=== PATIENT | female | born 1935 | race Caucasian/White ===

== ENCOUNTER → 2016-08-13 | Outpatient (CLI) | payer OTHER, BC ==
[~2016-08-13] MED LIST: AMB10 PO; ATV/1 PO; CLR10 PO; IBUP-1050 PO; PANT40TA PO; PSEU30TA20 PO; RANI300T2 PO; SIMV40TA4 PO; TELM40TA PO
[2016-08-13 11:40] LABS: BLOOD UREA NITROGEN 18 mg/dl (7-18); BUN/CREATININE RATIO 20.2 (10-20); CALCIUM 8.8 mg/dl (8.5-10.1); CARBON DIOXIDE 30 mmol/L (21-32); CHLORIDE 106 mmol/L (98-107); CREATININE 0.91 mg/dl (0.60-1.20); GLUCOSE 96 mg/dl (70-99); MAGNESIUM 2.3 mg/dl (1.8-2.4); SODIUM 141 mmol/L (136-145)
== END | disposition home or self-care (01) ==
LOC: C.LABBC 08:22
PROVIDERS: ATTEND Internal Medicine
DX: I10 Essential (primary) hypertension (principal); G60.3 Idiopathic progressive neuropathy

== ENCOUNTER → 2016-11-12 | Outpatient (CLI) | payer OTHER, BC ==
[~2016-11-12] VITALS: Ht 162.6 cm; Wt 104.8 kg
[2016-11-12 13:21] VITALS: BP 123/84; Ht 162.6 cm; Wt 104.8 kg
== END | disposition home or self-care (01) ==
LOC: C.NEUR 12:27
PROVIDERS: ATTEND Physician Assistant Medical
DX: G47.33 Obstructive sleep apnea (adult) (pediatric) (principal); G47.34 Idiopathic sleep related nonobstructive alveolar hypoventilation

== ENCOUNTER → 2016-12-10 | Outpatient (CLI) | payer OTHER, BC ==
[2016-12-10 11:34] LABS: CALCIUM 8.9 mg/dl (8.5-10.1)
[2016-12-10 11:36] LABS: BLOOD UREA NITROGEN 21 mg/dl (7-18); BUN/CREATININE RATIO 20.8 (10-20); CARBON DIOXIDE 26 mmol/L (21-32); CHLORIDE 107 mmol/L (98-107); GLUCOSE 101 mg/dl (70-99); POTASSIUM 4.1 mmol/L (3.5-5.1); SODIUM 141 mmol/L (136-145)
[2016-12-10 12:08] LABS: ESTIMATED AVERAGE GLUCOSE 117 mg/dl; HA1C FLAG Normal (Normal)
== END | disposition home or self-care (01) ==
LOC: C.LABBC 08:15
PROVIDERS: ATTEND Internal Medicine
DX: E11.9 Type 2 diabetes mellitus without complications (principal); E78.00 Pure hypercholesterolemia, unspecified

== ENCOUNTER → 2017-01-17 | Outpatient (CLI) | payer OTHER, BC ==
--- NOTE | 2017-01-20 07:43 | MAMMOGRAPHY REPORT ---
BILATERAL DIGITAL SCREENING MAMMOGRAM WITH CAD: 01/17/2017 CLINICAL HISTORY: Routine screening. Patient has no complaints. TECHNIQUE: Current study was also evaluated with a Computer Aided Detection (CAD) system. Bilateral CC and MLO views were obtained. COMPARISON: Comparison is made to exams dated: 01/17/2016 mammogram, 01/11/2015 mammogram, 11/08/2013 m ammogram, 06/02/2012 mammogram, 04/17/2010 mammogram - [facility], and 10/28/2007. BREAST COMPOSITION: There are scattered areas of fibroglandular density in both breasts. FINDINGS: There is a small focal asymmetry measuring 6 mm in the right upper outer quadrant, for whic h spot compression tomosynthesis views and possible breast ultrasound are recommended for further deb luation. The remainder of both breasts are stable compared to prior exams, without suspicious masses, calcific ations, or areas of architectural distortion noted. Small nodular asymmetry in the left medial poste rior breast on the cc view is stable dating back to at least the 2007 exam. IMPRESSION: ACR BI-RADS CATEGORY 0: INCOMPLETE EVALUATION: NEED ADDITIONAL IMAGING EVALUATION Right upper outer quadrant focal asymmetry, for which additional imaging evaluation is recommended. The patient will be called to schedule an appointment. Approximately 10% of breast cancers are not detected with mammography. A negative mammographic report should not delay biopsy if a clinically suggestive mass is present. Mahogany Rodriguez M.D. /:01/18/2017 11:01:55 Courtroom Deputy: Mila Cordon, [facility] letter sent: Addl Imaging 0 BI-RADS Code: ACR BI-RADS Category 0: Incomplete Evaluation: Need Additional Imaging Evaluation
== END | disposition home or self-care (01) ==
LOC: C.MAMM 10:20
PROVIDERS: ATTEND Obstetrics & Gynecology
DX: Z12.31 Encounter for screening mammogram for malignant neoplasm of breast (principal); N64.89 Other specified disorders of breast

== ENCOUNTER → 2017-01-20 | Outpatient (CLI) | payer OTHER, BC ==
--- NOTE | 2017-01-20 14:05 | MAMMOGRAPHY REPORT ---
UNILATERAL RIGHT DIGITAL DIAGNOSTIC MAMMOGRAM TOMOSYNTHESIS AND TARGETED RIGHT ULTRASOUND: 01/20/2017 CLINICAL HISTORY: 81 year-old woman called back from screening mammography for a small 6mm focal asym metry in the right upper outer quadrant. TECHNIQUE: Spot compression right CC and MLO 2-D and tomosynthesis images were obtained. COMPARISON: Comparison is made to exams dated: 01/17/2017 mammogram, 01/17/2016 mammogram, 01/11/2015 m ammogram, 11/08/2013 mammogram, 06/02/2012 mammogram, and 11/10/2013 ultrasound - [facility]. BREAST COMPOSITION: There are scattered areas of fibroglandular density in the right breast. FINDINGS: The spot compression views performed in the right upper outer quadrant demonstrate a persis tent oval circumscribed 4.3 x 5.6 x 3.1 mm mass. No associated architectural distortion or microcalc ification. Further evaluation with ultrasound was performed. Targeted ultrasound was performed in the right upper outer quadrant. In the 10:00 axis, 12 cm from t he nipple, there is an oval parallel circumscribed nearly anechoic cystic appearing mass with posteri or acoustic enhancement. It measures 4.5 x 2.7 x 4.0 mm and correlates well in size, shape and locat ion as the mammographic mass. To assess mammographicsonographic correlation, a skin BB was placed o verlying this cyst and repeat full field right CC and MLO 2-D and tomosynthesis images were performed . These additional views demonstrate alignment of the skin BB with the mammographic mass, confirming mammographicsonographic correlation. IMPRESSION: ACR BI-RADS CATEGORY 2: BENIGN, TARGETED ULTRASOUND ACR BI-RADS CATEGORY 2: BENIGN There is persistent circumscribed 4 x 5 mm oval mass in the right upper outer quadrant, which correla sin with a benign cyst on ultrasound. There is no mammographic or targeted sonographic evidence of m alignancy. Return to annual mammogram screening schedule is recommended. The patient has been verbal ly notified of the results. Approximately 10% of breast cancers are not detected with mammography. A negative mammographic report should not delay biopsy if a clinically suggestive mass is present. Rebecca Kimball M.D. ay/:01/20/2017 11:48:48 Quality Reviewer: Mila Cordon, [facility] letter sent: Normal 06/24 BI-RADS Code: ACR BI-RADS Category 2: Benign Ultrasound BI-RADS: ACR BI-RADS Category 2: Benign
== END | disposition home or self-care (01) ==
LOC: C.MAMM 11:05
PROVIDERS: ATTEND Obstetrics & Gynecology
DX: N64.89 Other specified disorders of breast (principal)

== ENCOUNTER → 2017-01-22 | Outpatient (CLI) | payer OTHER, BC ==
--- NOTE | 2017-01-22 15:07 | DIAGNOSTIC IMAGING REPORT ---
LEFT FOOT MIN 3 VIEWS ROUTINE CLINICAL HISTORY: 81 years-old Female presenting with LEFT FOOT CONTUSION, dish fell on foot. TECHNIQUE: Frontal, oblique, and lateral views of the left foot were obtained. COMPARISON: None. FINDINGS: Osteopenia. Mild degenerative changes at the first metatarsophalangeal joint. Exaggerated valgus angulation of the first toe. No acute fracture or other malalignment. Bone spur at the inferior calcaneus. Soft tissues grossly normal. IMPRESSION: No acute osseous injury of the left foot. Electronically signed by: Odin Da Silva M.D. 01/22/2017 3:05 PM Dictated Date/Time: 01/22/2017 3:04 PM
== END | disposition home or self-care (01) ==
LOC: C.LABBC 14:23
PROVIDERS: ATTEND Podiatrist Foot & Ankle Surgery
DX: S90.32XA Contusion of left foot, initial encounter (principal); X58.XXXA Exposure to other specified factors, initial encounter

== ENCOUNTER → 2017-04-14 | Outpatient (CLI) | payer OTHER, BC ==
[2017-04-14 13:52] LABS: ALT/SGPT 26 U/L (12-78); BLOOD UREA NITROGEN 18 mg/dl (7-18); BUN/CREATININE RATIO 19.5 (10-20); CALCIUM 8.6 mg/dl (8.5-10.1); CARBON DIOXIDE 27 mmol/L (21-32); CHLORIDE 107 mmol/L (98-107); CHOLESTEROL 135 mg/dl (0-200); GLUCOSE 99 mg/dl (70-99); SODIUM 141 mmol/L (136-145)
[2017-04-14 13:55] LABS: ALB/GLOB RATIO 1.1 (0.9-2); ALKALINE PHOSPHATASE 54 U/L (45-117); AST/SGOT 16 U/L (15-37); CHOLESTEROL/HDL RATIO 1.8; HDL CHOLESTEROL 77 mg/dl; LDL CHOLESTEROL CALCULATED 42 mg/dl; TRIGLYCERIDES 80 mg/dl (0-150); VERY LOW DENSITY LIPOPROT CALC 16 mg/dl
[2017-04-15 06:47] LABS: ESTIMATED AVERAGE GLUCOSE 114 mg/dl; HA1C FLAG Normal (Normal)
== END | disposition home or self-care (01) ==
LOC: C.LABBC 09:16
PROVIDERS: ATTEND Internal Medicine
DX: E11.9 Type 2 diabetes mellitus without complications (principal)

== ENCOUNTER → 2017-05-13 | Outpatient (CLI) | payer OTHER, BC ==
[~2017-05-13] VITALS: Ht 162.6 cm; Wt 106.7 kg
[2017-05-13 12:37] VITALS: BP 131/81; PULSE 86; Ht 162.6 cm; Wt 106.7 kg
== END | disposition home or self-care (01) ==
LOC: C.NEUR 12:01
PROVIDERS: ATTEND Internal Medicine Pulmonary Disease
DX: G47.33 Obstructive sleep apnea (adult) (pediatric) (principal); G47.34 Idiopathic sleep related nonobstructive alveolar hypoventilation; G47.00 Insomnia, unspecified; J31.0 Chronic rhinitis

== ENCOUNTER 2017-07-03 12:34 | Observation (INO) | payer OTHER, BC ==
[~2017-07-03] VITALS: Ht 162.6 cm; Wt 107.5 kg
--- NOTE | 2017-07-03 13:13 | EMERGENCY ROOM VISIT NOTE ---
History Report prepared by Ghassan: Mack Ramírez Under the Supervision of: Dr. Bahsir Medina M.D. First contact with patient: 12:49 Chief Complaint: CHEST PAIN Stated Complaint: CHEST PAIN,JAW History of Present Illness The patient is an 82 year old female who presents to the Emergency Room with complaints of now resolved chest pain that the patient experienced at 1212, 51 minutes prior to arrival. The patient states that her symptoms began with pain in her jaw, and progressed to pain in her central chest and upper back. She describes her resolved pain as "moderate." These pains are all resolved at this time. The patient did chew an 324 mg aspirin when the symptoms began. She denies any recent travel, hormone cream use, or recent surgeries. The patient has has these symptoms evaluated before, and has never had cardiac disease. She denies any history of family history of blood clots. Source of History: patient Onset: 51 minutes Position: chest Symptom Intensity: Moderate Timing: resolved Associated Symptoms: + back pain (upper) Note: Jaw pain Review of Systems See HPI for pertinent positives and negatives. A total of ten systems were reviewed and were otherwise negative. Past Medical & Surgical Medical Problems: (1) Hypertension Family History Diabetes mellitus FH: cancer FH: lung disease Social History Smoking Status: Former Smoker Marital Status: Housing Status: lives with significant other Occupation Status: retired Current/Historical Medications Scheduled Azelastine Hcl-Fluticasone Pro (Dymista), 2 SPRY PATRICIA PRN Coenzyme Q10 (Ubidecarenone) (Co Q-10), 1 CAP PO HS Cyanocobalamin (Vitamin B-12), 1,000 MCG PO DAILY Ibuprofen (Advil), 400-600 MG PO Q6HR PRN Ranitidine (Zantac), 300 MG PO HS Simvastatin (Zocor), 40 MG PO QPM Telmisartan (Micardis), 1 TAB PO DAILY Zolpidem Tartrate (Ambien), 5 MG PO HS Scheduled PRN Loratadine (Claritin), 10 MG PO DAILY PRN for ALLERGIES Lorazepam (Ativan), 0.5-1 MG PO PRN PRN for Anxiety Allergies Coded Allergies: Sulfa Drugs (Verified Allergy, Unknown, 07/03/17) Physical Exam Vital Signs Date Time Temp Pulse Resp B/P (MAP) Pulse Ox O2 Delivery O2 Flow Rate FiO2 07/03/17 14:18 62 18 139/76 93 Room Air 07/03/17 13:08 62 18 160/85 96 Room Air 07/03/17 13:06 95 Room Air 07/03/17 13:03 95 Room Air 07/03/17 13:03 71 07/03/17 12:43 159/78 07/03/17 12:37 36.5 68 20 144/74 95 Room Air Physical Exam GENERAL: Awake, alert, well-appearing, in no distress HENT: Normocephalic, Atraumatic. no hemotympanum bilaterally, hicks sign negative bilaterally. Oropharynx unremarkable. EYES: Normal conjunctiva. Sclera non-icteric. PERRL bilaterally. EOMI bilaterally. NECK: Supple. No nuchal rigidity. FROM. No JVD. No C-spine tenderness. RESPIRATORY: Clear to auscultation. No wheezes, Rales, or rhonchi. CARDIAC: Regular rate, normal rhythm. Extremities warm and well perfused. Equal palpable radial pulses to the bilateral upper extremities. Equal palpable DP pulses to the bilateral lower extremities. ABDOMEN: Soft, non-distended. No tenderness to palpation. No rebound or guarding. No masses. Rovsig Negative. RECTAL: Deferred. MUSCULOSKELETAL: Chest examination reveals no tenderness. The back is symmetrical on inspection without obvious abnormality. There is no CVA tenderness to palpation. No joint edema. LOWER EXTREMITIES: Calves are equal size bilaterally and non-tender. No edema. No discoloration. NEURO: Normal sensorium. No sensory or motor deficits noted. No pronator drift. No facial droop. No dysarthria. SKIN: No rash or jaundice noted. Medical Decision & Procedures ER Provider Diagnostic Interpretation: Radiology results as stated below per my review and radiologist interpretation: SINGLE VIEW CHEST CLINICAL HISTORY: Atypical chest pain. FINDINGS: An AP, portable, upright chest radiograph is compared to study dated 12/29/2013. The examination is degraded by portable technique and patient rotation. The heart is enlarged and there is atherosclerotic calcification of the thoracic aorta. The pulmonary vasculature is noncongested. Chronic interstitial thickening is similar to previous. No airspace consolidation, large pleural effusion, or pneumothorax is seen. The skeletal structures are osteopenic. The bony thorax is grossly intact. Arthritic change is seen in the shoulders. IMPRESSION: Cardiomegaly with no acute cardiopulmonary abnormality. Electronically signed by: Luis Miguel Stanley M.D. 07/03/2017 1:41 PM Dictated Date/Time: 07/03/2017 1:40 PM Laboratory Results 07/03/17 13:00 Red Blood Count 4.76, Mean Corpuscular Volume 89.7, Mean Corpuscular Hemoglobin 30.3, Mean Corpuscular Hemoglobin Concent 33.7, Mean Platelet Volume 9.6, Neutrophils (%) (Auto) 63.8, Lymphocytes (%) (Auto) 27.8, Monocytes (%) (Auto) 6.0, Eosinophils (%) (Auto) 1.5, Basophils (%) (Auto) 0.6, Neutrophils # (Auto) 4.38, Lymphocytes # (Auto) 1.91, Monocytes # (Auto) 0.41, Eosinophils # (Auto) 0.10, Basophils # (Auto) 0.04 07/03/17 13:00 Test 07/03/17 13:00 White Blood Count 6.86 K/uL (4.8-10.8) Red Blood Count 4.76 M/uL (4.2-5.4) Hemoglobin 14.4 g/dL (12.0-16.0) Hematocrit 42.7 % (37-47) Mean Corpuscular Volume 89.7 fL (80-100) Mean Corpuscular Hemoglobin 30.3 pg (25-34) Mean Corpuscular Hemoglobin Concent 33.7 g/dl (32-36) Platelet Count 228 K/uL (130-400) Mean Platelet Volume 9.6 fL (7.4-10.4) Neutrophils (%) (Auto) 63.8 % Lymphocytes (%) (Auto) 27.8 % Monocytes (%) (Auto) 6.0 % Eosinophils (%) (Auto) 1.5 % Basophils (%) (Auto) 0.6 % Neutrophils # (Auto) 4.38 K/uL (1.4-6.5) Lymphocytes # (Auto) 1.91 K/uL (1.2-3.4) Monocytes # (Auto) 0.41 K/uL (0.11-0.59) Eosinophils # (Auto) 0.10 K/uL (0-0.5) Basophils # (Auto) 0.04 K/uL (0-0.2) RDW Standard Deviation 40.1 fL (36.4-46.3) RDW Coefficient of Variation 12.4 % (11.5-14.5) Immature Granulocyte % (Auto) 0.3 % Immature Granulocyte # (Auto) 0.02 K/uL (0.00-0.02) Anion Gap 5.0 mmol/L (3-11) Est Creatinine Clear Calc Drug Dose 60.0 ml/min Estimated GFR () 70.0 Estimated GFR (Non- 60.4 BUN/Creatinine Ratio 25.6 (10-20) Calcium Level 8.9 mg/dl (8.5-10.1) Total Bilirubin 0.8 mg/dl (0.2-1) Direct Bilirubin 0.1 mg/dl (0-0.2) Aspartate Amino Transf (AST/SGOT) 14 U/L (15-37) Alanine Aminotransferase (ALT/SGPT) 28 U/L (12-78) Alkaline Phosphatase 59 U/L (45-117) Troponin I < 0.015 ng/ml (0-0.045) Total Protein 7.1 gm/dl (6.4-8.2) Albumin 3.7 gm/dl (3.4-5.0) Lipase 157 U/L (73-393) Laboratory results reviewed by me ECG Indication: chest pain Rate (beats per minute): 65 Findings: no acute ischemic change, no ectopy, other (Normal Intervals, NO ST- elevation/depression) ED Course 1302: The patient was evaluated in room B6. A complete history and physical exam was performed. 1420: I discussed the case with Dr. Daniel Whittaker. He states that she has had a recent ECHO in February, but due to her symptoms and comorbidities he recommends observation in hospital. 1430: I discussed the case with Dr. Bishnu Slaughter [facility] Hosp[facility]. He will evaluate the patient for further treatment. Medical Decision I discussed the case with Dr. Daniel Whittaker. He states that she has had a recent ECHO in February, but due to her symptoms and comorbidities he recommends observation in hospital. Consults Time Called: 1410 Consulting Physician: Dr. Daniel Whittaker Returned Call: 1420 I discussed the case with Dr. Daniel Whittaker. He states that she has had a recent ECHO in February, but due to her symptoms and comorbidities he recommends observation in hospital. Additional Consults: Time Called: 1425 Consulted Physician: Dr. Bishnu CARNEY Hospitalist Returned Call: 1430 Additional Comments: I discussed the case with Dr. Bishnu CARNEY Hospitaist. He will evaluate the patient for further treatment. Impression Primary Impression: Chest pain Additional Impression: Rule Out acte coronary syndrome Scribe Attestation The scribe's documentation has been prepared under my direction and personally reviewed by me in its entirety. I confirm that the note above accurately reflects all work, treatment, procedures, and medical decision making performed by me. Departure Information Dispostion Home / Self-Care Referrals Miguel Robert M.D. (PCP) Patient Instructions My [facility] Problem Qualifiers
--- NOTE | 2017-07-03 13:42 | DIAGNOSTIC IMAGING REPORT ---
SINGLE VIEW CHEST CLINICAL HISTORY: Atypical chest pain. FINDINGS: An AP, portable, upright chest radiograph is compared to study dated 12/29/2013. The examination is degraded by portable technique and patient rotation. The heart is enlarged and there is atherosclerotic calcification of the thoracic aorta. The pulmonary vasculature is noncongested. Chronic interstitial thickening is similar to previous. No airspace consolidation, large pleural effusion, or pneumothorax is seen. The skeletal structures are osteopenic. The bony thorax is grossly intact. Arthritic change is seen in the shoulders. IMPRESSION: Cardiomegaly with no acute cardiopulmonary abnormality. Electronically signed by: Luis Miguel Stanley M.D. 07/03/2017 1:41 PM Dictated Date/Time: 07/03/2017 1:40 PM
[2017-07-03 13:44] LABS: BASO % 0.6 %; BASO ABS # 0.04 K/uL (0-0.2); EOS % 1.5 %; HEMATOCRIT 42.7 % (37-47); HEMOGLOBIN 14.4 g/dL (12.0-16.0); IG# 0.02 K/uL (0.00-0.02); LYMPH % 27.8 %; LYMPH ABS # 1.91 K/uL (1.2-3.4); MEAN CELL VOLUME 89.7 fL (80-100); MEAN CORPUSCULAR HEMOGLOBIN 30.3 pg (25-34); MEAN CORPUSCULAR HGB CONC 33.7 g/dl (32-36); MEAN PLATELET VOLUME 9.6 fL (7.4-10.4); MONO ABS # 0.41 K/uL (0.11-0.59); NEUT % 63.8 %; NEUT ABS # 4.38 K/uL (1.4-6.5); PLATELET COUNT 228 K/uL (130-400); RED CELL DISTRIBUTION WIDTH CV 12.4 % (11.5-14.5); RED CELL DISTRIBUTION WIDTH SD 40.1 fL (36.4-46.3); WHITE BLOOD COUNT 6.86 K/uL (4.8-10.8)
[2017-07-03] MEDS ORDERED: ZOLP5TAB PO (13:48)
[2017-07-03] MEDS ORDERED: TELM5TAB2 PO (13:48)
[2017-07-03] MEDS ORDERED: AZEL30SP NAE (13:48)
[2017-07-03] MEDS ORDERED: COEN1CAP37 PO (13:48)
[2017-07-03] MEDS ORDERED: CYAN10005 PO (13:48)
[2017-07-03 13:53] LABS: ALBUMIN 3.7 gm/dl (3.4-5.0); ALT/SGPT 28 U/L (12-78); AST/SGOT 14 U/L (15-37); BLOOD UREA NITROGEN 23 mg/dl (7-18); CALCIUM 8.9 mg/dl (8.5-10.1); CARBON DIOXIDE 27 mmol/L (21-32); GLUCOSE 102 mg/dl (70-99); LIPASE 157 U/L (73-393); POTASSIUM 3.9 mmol/L (3.5-5.1); SODIUM 137 mmol/L (136-145)
[2017-07-03 13:58] LABS: ALKALINE PHOSPHATASE 59 U/L (45-117); TOTAL PROTEIN 7.1 gm/dl (6.4-8.2)
[2017-07-03] MEDS ORDERED: POLYETHYLENE (MIRALAX) 17 GM PACK PO PRN (15:00)
[2017-07-03] MEDS ORDERED: FLUTICASONE PROPIONATE NAE SCH (15:00)
[2017-07-03] MEDS ORDERED: MoRPHine SULFATE 2 MG/ML CARP IV PRN (15:00)
[2017-07-03] MEDS ORDERED: MAGNESIUM HYDROXIDE SUSP 30 ML UDC PO PRN (15:00)
[2017-07-03] MEDS ORDERED: ALUMINUM/MAGNESIUM/SIMETH (MAALOX MAX) 30 ML UDC PO PRN (15:00)
[2017-07-03] MEDS ORDERED: LORATADINE 10 MG TAB PO PRN (15:00)
[2017-07-03] MEDS ORDERED: LORAZEPAM 1 MG TAB PO PRN (15:00)
[2017-07-03] MEDS ORDERED: NITROGLYCERIN 0.4 MG SL PER TAB CHARGE SL PRN (15:00)
[2017-07-03] MEDS ORDERED: ONDANSETRON INJ 2 MG/ML 2 ML VIAL IV PRN (15:00)
[2017-07-03] MEDS ORDERED: AZELASTINE HCL NAE SCH (15:00)
[2017-07-03] MEDS ORDERED: ACETAMINOPHEN 325 MG TAB PO PRN (15:00)
--- NOTE | 2017-07-03 15:29 | History and Physical ---
History & Physical Date & Time of Service: Jul 03, 2017 at 15:14 Chief Complaint: Chest Pain,Jaw Primary Care Physician: Miguel Robert M.D. History of Present Illness Source: patient 82 y/o F Hx HTN, HPL, mitral prolapse, obese. Pt developed pain in her jaw which then migrated to he chest. She denies accompanying SOB, N/V or diaphoresis. She states she was lightheaded but attributes this to being slightly panicked form the pain. The pain lasted approximately 25 min and resolved prior to her arrival in the ER. The pt had a + stress test in 1999. This was followed by a catheterization which did not reveal any CAD. Past Medical/Surgical History 1) HTN 2) HPL 3) Obesity - BMI > 40 Family History Diabetes mellitus FH: cancer FH: lung disease Social History Smoking Status: Former Smoker Marital Status: Occupational Status: retired Immunizations History of Tetanus Vaccine?: Yes History of Pneumococcal: Yes History of Hepatitis B Vaccine: No Multi-Drug Resistant Organisms History of MDRO: No Allergies Coded Allergies: Sulfa Drugs (Verified Allergy, Unknown, 07/03/17) Home Medications Scheduled Azelastine Hcl-Fluticasone Pro (Dymista), 2 SPRY PATRICIA PRN Coenzyme Q10 (Ubidecarenone) (Co Q-10), 1 CAP PO HS Cyanocobalamin (Vitamin B-12), 1,000 MCG PO DAILY Ibuprofen (Advil), 400-600 MG PO Q6HR PRN Ranitidine (Zantac), 300 MG PO HS Simvastatin (Zocor), 40 MG PO QPM Telmisartan (Micardis), 1 TAB PO DAILY Zolpidem Tartrate (Ambien), 5 MG PO HS Scheduled PRN Loratadine (Claritin), 10 MG PO DAILY PRN for ALLERGIES Lorazepam (Ativan), 0.5-1 MG PO PRN PRN for Anxiety Review of Systems Constitutional: No fever, No chills, No sweats Eyes: No worsening of vision ENT: No hearing loss, No unusual epistaxis, No nasal symptoms Respiratory: No cough, No sputum, No wheezing Cardiovascular: + chest pain, No orthopnea, No PND Abdomen: No pain, No nausea, No vomiting Musculoskeletal: No joint pain Genitourinary - Female: No dysuria, No urinary frequency, No urinary urgency Neurologic: + problem reported (lightheaded with CP), No memory loss, No paralysis, No weakness Psychiatric: No depression symptoms Endocrine: No fatigue Hematologic / Lymphatic: No abnormal bleeding/bruising Integumentary: No rash Allergic / Immunologic: No environmental allergies Physical Exam Vital Signs Date Time Temp Pulse Resp B/P (MAP) Pulse Ox O2 Delivery O2 Flow Rate FiO2 07/03/17 14:18 62 18 139/76 93 Room Air 07/03/17 13:08 62 18 160/85 96 Room Air 07/03/17 13:06 95 Room Air 07/03/17 13:03 95 Room Air 07/03/17 13:03 71 07/03/17 12:43 159/78 07/03/17 12:37 36.5 68 20 144/74 95 Room Air General Appearance: WD/WN, no apparent distress Head: normocephalic Eyes: normal inspection ENT: normal ENT inspection, pharynx normal Neck: supple, + pertinent finding (Cannot assess JVD) Respiratory/Chest: chest non-tender, lungs clear, normal breath sounds Cardiovascular: regular rate, rhythm, no edema, no gallop Abdomen/GI: normal bowel sounds, non tender, soft Back: normal inspection Extremities/Musculoskelatal: normal inspection, no calf tenderness, normal capillary refill Neurologic/Psych: manager interface II-XII nml as tested, no motor/sensory deficits, alert, oriented x 3 Skin: normal color Diagnostics Laboratory Results Results Past 24 Hours Test 07/03/17 13:00 Range/Units White Blood Count 6.86 4.8-10.8 K/uL Red Blood Count 4.76 4.2-5.4 M/uL Hemoglobin 14.4 12.0-16.0 g/dL Hematocrit 42.7 37-47 % Mean Corpuscular Volume 89.7 80-100 fL Mean Corpuscular Hemoglobin 30.3 25-34 pg Mean Corpuscular Hemoglobin Concent 33.7 32-36 g/dl Platelet Count 228 130-400 K/uL Mean Platelet Volume 9.6 7.4-10.4 fL Neutrophils (%) (Auto) 63.8 % Lymphocytes (%) (Auto) 27.8 % Monocytes (%) (Auto) 6.0 % Eosinophils (%) (Auto) 1.5 % Basophils (%) (Auto) 0.6 % Neutrophils # (Auto) 4.38 1.4-6.5 K/uL Lymphocytes # (Auto) 1.91 1.2-3.4 K/uL Monocytes # (Auto) 0.41 0.11-0.59 K/uL Eosinophils # (Auto) 0.10 0-0.5 K/uL Basophils # (Auto) 0.04 0-0.2 K/uL RDW Standard Deviation 40.1 36.4-46.3 fL RDW Coefficient of Variation 12.4 11.5-14.5 % Immature Granulocyte % (Auto) 0.3 % Immature Granulocyte # (Auto) 0.02 0.00-0.02 K/uL Sodium Level 137 136-145 mmol/L Potassium Level 3.9 3.5-5.1 mmol/L Chloride Level 105 98-107 mmol/L Carbon Dioxide Level 27 21-32 mmol/L Anion Gap 5.0 3-11 mmol/L Blood Urea Nitrogen 23 7-18 mg/dl Creatinine 0.90 0.60-1.20 mg/dl Est Creatinine Clear Calc Drug Dose 60.0 ml/min Estimated GFR () 70.0 Estimated GFR (Non- 60.4 BUN/Creatinine Ratio 25.6 10-20 Random Glucose 102 70-99 mg/dl Calcium Level 8.9 8.5-10.1 mg/dl Total Bilirubin 0.8 0.2-1 mg/dl Direct Bilirubin 0.1 0-0.2 mg/dl Aspartate Amino Transf (AST/SGOT) 14 15-37 U/L Alanine Aminotransferase (ALT/SGPT) 28 12-78 U/L Alkaline Phosphatase 59 45-117 U/L Troponin I < 0.015 0-0.045 ng/ml Total Protein 7.1 6.4-8.2 gm/dl Albumin 3.7 3.4-5.0 gm/dl Lipase 157 73-393 U/L EKG NSR - L axis - no evidence of ischemia Impression Assessment and Plan 82 y/o F Hx HTN, HPL, mitral prolapse, obese. Pt developed pain in her jaw which then migrated to he chest. She denies accompanying SOB, N/V or diaphoresis. She states she was lightheaded but attributes this to being slightly panicked form the pain. The pain lasted approximately 25 min and resolved prior to her arrival in the ER. 1) CP - by request of her activity aid she will be scheduled for and inpt stress - we will continue ASA, Statin. Monitor on telemetry - serial enzymes - NTG/morphine PRN for CP. 2) HTN - cont Micardis 3) HPL - cont Zocor Full code - Heparin prophylaxis Total time for this admit including review of labs, meds, imaging, EKG, records - discussion with pt, ER attending, cardiology - 35 min Level of Care Telemetry Resuscitation Status FULL RESUSCITATION VTE Prophylaxis VTE Risk Assessment Done? Y/N: Yes Risk Level: Moderate Given or contraindicated: Unfractionated heparin SQ
[2017-07-03] MEDS ORDERED: IV FLUIDS COMPLETED PRN (16:00)
[2017-07-03 16:15] VITALS: BP 126/102; PULSE 77; TEMP 36.9; Ht 162.6 cm; Wt 107.5 kg
[2017-07-03 18:14] LABS: PTT PATIENT 26.4 SECONDS (21.0-31.0)
[2017-07-03 20:00] VITALS: O2SAT 94
[2017-07-03] MEDS ORDERED: TELMISARTAN 20 MG TAB PO SCH (21:00)
[2017-07-03] MEDS ORDERED: ZOLPIDEM TARTRATE 5 MG TAB PO SCH (21:00)
[2017-07-03] MEDS ORDERED: RANITIDINE HCL 150 MG TAB PO SCH (21:00)
[2017-07-03] MEDS ORDERED: SIMVASTATIN 40 MG TAB PO SCH (21:00)
[2017-07-03 21:02] VITALS: BP 129/79; PULSE 70; TEMP 37.2; O2SAT 94
[2017-07-03] MEDS ORDERED: NURSING VERBAL MED ORDER ONE (21:15)
[2017-07-03] MEDS: HEPARIN SOD 5000 UNIT/0.5 ML CARP SQ SCH (21:28)
[2017-07-03] MEDS ORDERED: D5NSS + 20MEQ KCL 1,000 ML IV SCH (22:00)
[2017-07-03 23:35] VITALS: BP 124/61; PULSE 59; TEMP 36.6; O2SAT 92
[2017-07-04 03:20] VITALS: BP 136/75; PULSE 65; TEMP 37; O2SAT 96
[2017-07-04] MEDS: HEPARIN SOD 5000 UNIT/0.5 ML CARP SQ SCH (06:00)
[2017-07-04] MEDS: [UNRECOGNIZED DRUG - OTHER] SCH ×2 (08:00)
--- NOTE | 2017-07-04 08:35 | Hospitalist Progress Note ---
Hospitalist Progress Note Date of Service Jul 04, 2017. Objective Vital Signs Date Time Temp Pulse Resp B/P (MAP) Pulse Ox O2 Delivery O2 Flow Rate FiO2 07/04/17 04:55 Room Air 07/04/17 03:20 37.0 65 22 136/75 (95) 96 Room Air 07/03/17 23:59 Room Air 07/03/17 23:35 36.6 59 18 124/61 (82) 92 Room Air 07/03/17 21:02 37.2 70 18 129/79 (96) 94 Room Air 07/03/17 20:00 94 Room Air 07/03/17 16:15 36.9 77 22 126/102 Room Air 07/03/17 15:55 36.5 62 18 139/76 93 Room Air 07/03/17 15:53 36.5 62 18 139/76 93 07/03/17 14:18 62 18 139/76 93 Room Air 07/03/17 13:08 62 18 160/85 96 Room Air 07/03/17 13:06 95 Room Air 07/03/17 13:03 95 Room Air 07/03/17 13:03 71 07/03/17 12:43 159/78 07/03/17 12:37 36.5 68 20 144/74 95 Room Air Laboratory Results Last 24 Hours Test 07/03/17 12:30 07/03/17 13:00 07/03/17 15:57 07/03/17 22:21 Prothrombin Time 10.5 SECONDS Prothromb Time International Ratio 1.0 Activated Partial Thromboplast Time 26.4 SECONDS Partial Thromboplastin Ratio 1.0 White Blood Count 6.86 K/uL Red Blood Count 4.76 M/uL Hemoglobin 14.4 g/dL Hematocrit 42.7 % Mean Corpuscular Volume 89.7 fL Mean Corpuscular Hemoglobin 30.3 pg Mean Corpuscular Hemoglobin Concent 33.7 g/dl Platelet Count 228 K/uL Mean Platelet Volume 9.6 fL Neutrophils (%) (Auto) 63.8 % Lymphocytes (%) (Auto) 27.8 % Monocytes (%) (Auto) 6.0 % Eosinophils (%) (Auto) 1.5 % Basophils (%) (Auto) 0.6 % Neutrophils # (Auto) 4.38 K/uL Lymphocytes # (Auto) 1.91 K/uL Monocytes # (Auto) 0.41 K/uL Eosinophils # (Auto) 0.10 K/uL Basophils # (Auto) 0.04 K/uL RDW Standard Deviation 40.1 fL RDW Coefficient of Variation 12.4 % Immature Granulocyte % (Auto) 0.3 % Immature Granulocyte # (Auto) 0.02 K/uL Sodium Level 137 mmol/L Potassium Level 3.9 mmol/L Chloride Level 105 mmol/L Carbon Dioxide Level 27 mmol/L Anion Gap 5.0 mmol/L Blood Urea Nitrogen 23 mg/dl Creatinine 0.90 mg/dl Est Creatinine Clear Calc Drug Dose 60.0 ml/min Estimated GFR () 70.0 Estimated GFR (Non- 60.4 BUN/Creatinine Ratio 25.6 Random Glucose 102 mg/dl Calcium Level 8.9 mg/dl Total Bilirubin 0.8 mg/dl Direct Bilirubin 0.1 mg/dl Aspartate Amino Transf (AST/SGOT) 14 U/L Alanine Aminotransferase (ALT/SGPT) 28 U/L Alkaline Phosphatase 59 U/L Troponin I < 0.015 ng/ml < 0.015 ng/ml < 0.015 ng/ml Total Protein 7.1 gm/dl Albumin 3.7 gm/dl Lipase 157 U/L Assessment and Plan 82 y/o F Hx HTN, HPL, mitral prolapse, obesity.. Pt developed pain in her jaw which then migrated to he chest. P Chest pain - Cardiac biomarkers neg x 3, dobutamine stress test ordered - continue ASA, Statin. - NTG/morphine PRN for CP. HTN - cont Micardis 20 mg daily HPL - cont Zocor DVT ppx: heparin CODE STATUS: Full code
[2017-07-04 08:53] VITALS: BP 140/80; PULSE 55; TEMP 36.9; O2SAT 94
[2017-07-04] MEDS ORDERED: TELMISARTAN 20 MG TAB PO SCH (09:00)
[2017-07-04] MEDS ORDERED: CYANOCOBALAMIN 500 MCG TAB (VIT B-12) PO SCH (09:00)
[2017-07-04] MEDS ORDERED: METOPROLOL TARTRATE 1 MG/ML VIAL ONE (10:25)
[2017-07-04] MEDS ORDERED: DOBUTamine HCL 12.5 MG/ML 20 ML VIAL ONE (10:25)
[2017-07-04] MEDS ORDERED: ATROPINE SULFATE 0.1 MG/ML 5ML SYR ONE (10:25)
[2017-07-04] MEDS ORDERED: PERFLUTREN LIPID MICROSPHERE (DEFINITY) IV ONE (11:22)
--- NOTE | 2017-07-04 11:23 | CARDIOLOGY CONSULTATION ---
DATE OF CONSULTATION: 07/04/2017 REFERRING PHYSICIAN: Dr. Goetz. PRIMARY CARE PHYSICIAN: Miguel Robert MD. HISTORY OF PRESENT ILLNESS: The patient is an 82-year-old female whose past medical history is notable for intermittent chest discomfort though generally quiescent symptoms recently. History of mild coronary atherosclerosis by remote cardiac catheterization in July 1999, labile hypertension, hyperlipidemia, chronic obstructive sleep apnea on CPAP supplement. The patient presented this admission noting having recent change in symptom pattern. She began experiencing a sensation of substernal pain radiating to the jaw and chest with associated mild lightheadedness but notes no sense of tachypalpitations. Notes no diaphoresis or nausea. Symptoms lasted approximately 25 minutes and then resolved prior to the ER presentation. Initial enzymes and EKGs have been unrevealing, though symptoms did occur at rest. She denies fevers, chills, sweats, cough, hoarseness, wheeze or hemoptysis. Notes no recent infection. Notes no melena, hematochezia, dysuria or hematuria. Has been taking medications as prescribed, wares CPAP faithfully. Appetite has been stable. Weight has been trending slightly upward. She notes no renal or hepatic disease. ALLERGIES: SULFA. MEDICATIONS: Prior to hospitalization were Dymista nasal spray, Coenzyme Q10, vitamin B12, ibuprofen p.r.n., loratadine 10 mg per day, lorazepam p.r.n., ranitidine 300 mg at bedtime, simvastatin 40 mg q.p.m., Micardis 20 mg p.o. daily, Ambien 5 mg at bedtime. PAST SURGICAL HISTORY: Notable for cataract extraction and remote tonsillectomy. FAMILY HISTORY: Not specifically notable for cardiac disease. Mother had a history of ALS. Father of lung cancer. SOCIAL HISTORY: The patient is a nonsmoker, discontinued in 1976. Drinks occasional glass of wine. PHYSICAL EXAMINATION: GENERAL: The patient is an age appropriate female, currently in no acute distress. VITAL SIGNS: Reveal a heart rate of 55, blood pressure is 140/80. HEENT: Normocephalic, atraumatic. Nares without discharge. Throat is clear. NECK: Supple without thyromegaly, lymphadenopathy, JVD. There are no carotid bruits. Carotid pulses are 2/4 without delay. LUNGS: Clear to auscultation. CARDIOVASCULAR: Regular with normal S1, S2. There is no audible murmur or rub. ABDOMEN: Soft, nontender. There is no palpable hepatosplenomegaly. There is no hepatojugular reflux. EXTREMITIES: Without cyanosis or clubbing. There is no peripheral edema. There are intact distal pulses. LABORATORY DATA: Since admission white cell count was 6.8, hemoglobin 14.4. Renal function was normal. Troponins were less than 0.015 x3 separate testings. EKG reveals sinus rhythm with left axis deviation and no acute findings or changes, no evolution. Chest x-ray reveals cardiomegaly without acute cardiopulmonary abnormality. IMPRESSION: An 82-year-old female with history of occasional atypical chest discomfort, presents now with slight change in functional capacity and symptoms with recent rest symptoms of substernal chest pressure, hard, heavy, lasting 25 minutes and resolving spontaneously. Enzymes and EKG are negative for acute ischemia. RECOMMENDATIONS: The patient is referred for stress dobutamine echocardiography today. Further recommendations pending the results of the study. All other medications to be continued as prescribed. Laboratory studies and data reviewed in detail with the patient and she is agreeable to plan.
--- NOTE | 2017-07-04 11:41 | CARDIOLOGY PROGRESS NOTE ---
DATE: 07/04/2017 DATE: 07/04/2017 SUBJECTIVE: The patient was referred and underwent dobutamine stress echocardiography. The patient received 30 mcg per kilogram per minute of dobutamine and achieved maximum heart rate of 90% age predicted maximum heart rate. There are no cardiac complaints, resting and stress EKG were normal, resting and stress LV function was normal. There were no stress induced wall motion abnormalities to suggest ischemia. There is no significant underlying valvular disease. There is no pericardial effusion. Study was negative for stress induced ischemia. RECOMMENDATIONS: The patient may be discharged to home with planned followup with cardiology in the next 2-3 weeks' time. Plan will be arranged.
--- NOTE | 2017-07-04 11:50 | Discharge Instructions ---
Discharge Instructions Date of Service Jul 04, 2017. Admission Reason for Admission: Chest Pain Discharge Discharge Diagnosis / Problem: Chest Pain Discharge Goals Goal(s): Decrease discomfort, Improve function, Increase independence, Improve disease control Activity Recommendations Activity Limitations: resume your previous activity Lifting Limitations: gradually increase as tolerated Exercise/Sports Limitations: rest today, gradually increase as tolerated May Resume Sexual Activity: when tolerated Shower/Bathe: no limitations Driving or Machine Use: Do NOT drive until seen by your PCP . Instructions / Follow-Up Instructions / Follow-Up You were admitted to [facility] with chest pain and diagnosed the same likely due to anxiety. Cardiac enzymes were negative x 3 sets, you were evaluated with a cardiac dobutamine stress test which as also negative for any cardiac ischemia. During your stay here you were treated with supportive care and maintained on your home medications. Medications: Continue taking your medications as prescribed. Appointments: Follow up with your Primary Care Provider within 1 week. Follow up with cardiology within 2 weeks. Current Hospital Diet Patient's current hospital diet: AHA Diet (Heart Healthy) Discharge Diet Recommended Diet: AHA Diet (Heart Healthy) Pending Studies Studies pending at discharge: no Laboratory Results Hemoglobin A1c Test 04/14/17 09:21 Range/Units Estimated Average Glucose 114 mg/dl Hemoglobin A1c 5.6 4.5-5.6 % Lipid Panel Test 04/14/17 09:21 Range/Units Triglycerides Level 80 0-150 mg/dl Cholesterol Level 135 0-200 mg/dl HDL Cholesterol 77 mg/dl Cholesterol/HDL Ratio 1.8 LDL Cholesterol, Calculated 42 mg/dl Medical Emergencies . Who to Call and When: Medical Emergencies: If at any time you feel your situation is an emergency, please call 911 immediately. . Non-Emergent Contact Non-Emergency issues call your: Primary Care Provider, Sales Representative Call Non-Emergent contact if: you have a fever, temperature is above 100.5, your pain is not controlled, your pain is worsening, your pain is unusual for you, your pain is concerning you, you have any medication questions other concerns with your health. Call 911 or go directly to the Emergency Department if you experience any of the following: Chest pain, chest tightness, shortness of breath, abdominal pain , lightheadedness, dizziness, gastrointestinal bleeding, or have any other concerns regarding your health. . Past History Medical & Surgical History: (1) Chest pain (2) Hypertension . "Provider Documentation" section prepared by Josefina Kimball. . VTE Core Measure Inpt VTE Proph given/why not?: Unfractionated heparin SQ
[2017-07-04 12:16] VITALS: BP 140/80; PULSE 55; TEMP 36.9; O2SAT 94
--- NOTE | 2017-07-04 12:16 | Discharge Summary ---
Discharge Summary Date of Service Jul 04, 2017. Discharge Summary Admission Date: Jul 03, 2017 at 14:52 Discharge Date: Jul 04, 2017 Discharge Disposition: Home Principal Diagnosis: Chest pain secondary to anxiety Problems/Secondary Diagnoses: (1) Hypertension Status: Chronic Immunizations: History of Tetanus Vaccine?: Yes History of Pneumococcal: Yes History of Hepatitis B Vaccine: No Procedures: SINGLE VIEW CHEST 07/03/17 FINDINGS: An AP, portable, upright chest radiograph is compared to study dated 12/29/2013. The examination is degraded by portable technique and patient rotation. The heart is enlarged and there is atherosclerotic calcification of the thoracic aorta. The pulmonary vasculature is noncongested. Chronic interstitial thickening is similar to previous. No airspace consolidation, large pleural effusion, or pneumothorax is seen. The skeletal structures are osteopenic. The bony thorax is grossly intact. Arthritic change is seen in the shoulders. IMPRESSION: Cardiomegaly with no acute cardiopulmonary abnormality. Consultations: Cardiology Medication Reconciliation Continued Medications: Azelastine Hcl-Fluticasone Pro (Dymista) 1 Spr Spr 2 SPRY PATRICIA PRN Coenzyme Q10 (Ubidecarenone) (Co Q-10) 200 Mg Cap 1 CAP PO HS Cyanocobalamin (Vitamin B-12) 1,000 Mcg Tab 1000 MCG PO DAILY, TAB Ibuprofen (Advil) 200 Mg Tab 400-600 MG PO Q6HR PRN, 0 Refills Loratadine (Claritin) 10 Mg Tab 10 MG PO DAILY PRN for ALLERGIES, TAB Lorazepam (Ativan) 1 Mg Tab 0.5-1 MG PO PRN PRN for Anxiety, TAB Ranitidine (Zantac) 300 Mg Tab 300 MG PO HS for PRN Simvastatin (Zocor) 40 Mg Tab 40 MG PO QPM, TAB Telmisartan (Micardis) 20 Mg Tab 1 TAB PO DAILY Zolpidem Tartrate (Ambien) 5 Mg Tab 5 MG PO HS, TAB Discharge Exam The patient was seen and examined this morning. Pt reports doing well today, she just completed her stress echo and reports feels well. She has not had any chest pain since she was admitted. She has been up ambulating without difficulty, no headache, palpitations or flutter or shortness of breath. She tolerated lunch without difficulty. ROS: 10 point ROS reviewed and otherwise negative. Physical Exam: General Appearance: WD/WN, no apparent distress, + obese Eyes: normal inspection, EOMI ENT: hearing grossly normal, pharynx normal Neck: supple, no JVD Respiratory/Chest: chest non-tender, lungs clear, no respiratory distress Cardiovascular: regular rate, rhythm, no JVD, no murmur, normal peripheral pulses Abdomen / GI: normal bowel sounds, non tender, soft Extremities: no calf tenderness, no pedal edema Neurologic/Psychiatric: alert, normal mood/affect, oriented x 3 Skin: normal color, warm/dry Hospital Course History of Present Illness Source: patient 82 y/o F Hx HTN, HPL, mitral prolapse, obese. Pt developed pain in her jaw which then migrated to he chest. She denies accompanying SOB, N/V or diaphoresis. She states she was lightheaded but attributes this to being slightly panicked form the pain. The pain lasted approximately 25 min and resolved prior to her arrival in the ER. The pt had a + stress test in 1999. This was followed by a catheterization which did not reveal any CAD. Physical Exam General Appearance: WD/WN, no apparent distress Head: normocephalic Eyes: normal inspection ENT: normal ENT inspection, pharynx normal Neck: supple, + pertinent finding (Cannot assess JVD) Respiratory/Chest: chest non-tender, lungs clear, normal breath sounds Cardiovascular: regular rate, rhythm, no edema, no gallop Abdomen/GI: normal bowel sounds, non tender, soft Back: normal inspection Extremities/Musculoskelatal: normal inspection, no calf tenderness, normal capillary refill Neurologic/Psych: digital content manager II-XII nml as tested, no motor/sensory deficits, alert, oriented x 3 Skin: normal color Hospital Course: 82 y/o F Hx HTN, HPL, mitral prolapse, obesity. Pt developed pain in her jaw which then migrated to he chest. Pt reports having family stress regarding her grown children and their spouses recently which she thinks may have contributed to anxiety and jaw/chest pain. Chest pain - Cardiac biomarkers neg x 3, dobutamine stress test conducted and was negative. Discussion held with Dr. Sanchez and he is agreeable to continuing all medications as they are prescribed with follow up in 2 weeks. - continue ASA, Statin. - Pt chest pain resolved after admission and nthere were no needs for NGT or morphine for pain control. HTN - cont Micardis 20 mg daily HPL - cont Zocor DVT ppx: heparin CODE STATUS: Full code Disposition: From [place], discharge today. i personally examined pt and verified all phelps points blayne Kimball PAC chest pain - -> negative enzymes, negative stress test. feeling OK to go home vitals noted nad breathing unlabored no pallor or icterus noncardiac chest pain - stable for discharge Total Time Spent: Greater than 30 minutes This includes examination of the patient, discharge planning, medication reconciliation, and communication with other providers. Discharge Instructions Please refer to the electronic Patient Visit Report (Discharge Instructions) for additional information. Follow-Up Follow up with your Primary Care Provider within 1 week. Follow up with Cardiology, Dr. Sanchez within 2 weeks. Additional Copies To Miguel Robert M.D.
--- NOTE | 2017-07-05 12:20 | DOBUTAMINE ECHO ---
*NOTICE TO RECEIVING DEMOCRAT AGENCY This information is strictly Confidential and protected under [place] law. [place] law prohibits you from making any further disclosure of this information unless further disclosure is expressly permitted by the written consent of the person to whom it pertains or is authorized by law. A general authorization for the release of medical or other information is not sufficient for this purpose. Hospital accepts no responsibility if the information is made available to any other person, INCLUDING THE PATIENT. Interpretation Summary * Name: MARTÍN BOWSER Study Date: 07/04/2017 08:50 AM BP: 139/63 mmHg * Patient Location: .2E\S\E212\S\1 HR: 60 * : 1935 (M/d/yyy) Gender: Female Height: 64 in * Age: 82 yrs Ethnicity: [place] Weight: 239 lb * Ordering Physician: Shekhar Goetz * Referring Physician: Self, Referred * Performed By: Terence Olson RCS * * Reason For Study: CHEST PAIN * BSA: 2.1 m2 * The stress echocardiogram is negative for inducible ischemia. Procedure Details * DOBUTAMINE ECHO, CPT#62370 * ECHO COLOR FLOW, CPT #39384 * ECHO DOPPLER, CPT #58303 * A contrast injection of Definity was performed to improve assessment of LV function. * Contrast was injected into an intravenous site in the right arm. * One vial of Definity ultrasound contrast was diluted in normal saline to a total volume of 10 ml. A total of '5' ml of solution was administered during imaging. * Lot # [id number] of Definity utilized for procedure. * Expiration date . * The attending nurse who injected the contrast agent was Lynn Alvarado RN. * The study was technically difficult with many images being suboptimal in quality. Left Ventricle * The left ventricle is normal in size. * There is mild concentric left ventricular hypertrophy. * Ejection Fraction = 60-65%. * Left ventricular systolic function is normal. * Resting wall motion: Normal. Stress wall motion: Appropriate increase in Left ventricular systolic function and decrease in cavity size. No stress induced segmental wall motion abnormalities. * The left ventricular wall motion is normal at rest. * The left ventricular ejection fraction increases normally with stress. The left ventricular end-systolic cavity size reduces post-stress (normal response). The left ventricular wall motion with stress is normal. Right Ventricle * The right ventricle is normal in size and function. Atria * Borderline left atrial enlargement. * Right atrial size is normal. * No ASD detected; PFO is not assessed. Mitral Valve * There is mild mitral annular calcification. * There is no mitral valve stenosis. * Significant mitral regurgitation is absent. Tricuspid Valve * The tricuspid valve is not well visualized, but is grossly normal. * There is no tricuspid stenosis. * Significant tricuspid regurgitation is absent. Aortic Valve * The aortic valve is trileaflet. * Aortic valve sclerosis mild, without significant aortic valvular stenosis. * There is no significant aortic regurgitation. Pulmonic Valve * The pulmonary valve is not well seen, but the Doppler examination is normal without significant regurgitation or stenosis. Great Vessels * The aortic root and proximal ascending aorta are normal sized. Pericardium * There is no pericardial effusion. Stress Parameters * Normal baseline electrocardiogram. * Stress ECG: No ST changes. No arrhythmias. * No arrhythmia were noted with stress. * The stress portion of this study was personally supervised by the undersigned interpreting physician. * Rest heart rate was '60' BPM. * Rest blood pressure was '139/63' * Maximum heart rate achieved was 130 bpm. * Maximum heart rate was 92 % of maximum age-predicted heart rate. * Maximum blood pressure was '159/59' * Maximum Dobutamine infusion rate was '30' mcg/kg/min. * Dobutamine infusion was terminated due to achieving target heart rate * A total of 2.5 mg of IV Metoprolol was administered to reverse Dobutamine-induced tachycardia. * The patient did not exhibit any symptoms during drug infusion. * Normal blood pressure response to exercise. Left Ventricular Diastolic Function * Grade I diastolic dysfunction, (abnormal relaxation pattern). MMode 2D Measurements and Calculations IVSd 1.1 cm IVSs 1.3 cm LVIDd 5.0 cm LVIDs 3.2 cm LVPWd 1.1 cm LVPWs 1.2 cm IVS/LVPW 1.1 FS 36.3 % EDV(Teich) 117.8 ml ESV(Teich) 40.2 ml EF(Teich) 65.8 % EDV(cubed) 124.3 ml ESV(cubed) 32.1 ml EF(cubed) 74.2 % % IVS thick 14.3 % % LVPW thick 15.1 % LV mass(C)d 210.5 grams LV mass(C)dI 99.8 grams/m\S\2 LV mass(C)s 130.9 grams LV mass(C)sI 62.1 grams/m\S\2 SV(Teich) 77.5 ml SI(Teich) 36.7 ml/m\S\2 SV(cubed) 92.3 ml SI(cubed) 43.7 ml/m\S\2 Ao root diam 3.5 cm Ao root area 9.5 cm\S\2 ACS 1.6 cm LA dimension 4.6 cm asc Aorta Diam 3.7 cm LA/Ao 1.3 EDV(MOD-sp4) 64.0 ml ESV(MOD-sp4) 21.2 ml EF(MOD-sp4) 66.9 % EDV(MOD-sp2) 71.6 ml ESV(MOD-sp2) 19.8 ml EF(MOD-sp2) 72.3 % SV(MOD-sp4) 42.8 ml SI(MOD-sp4) 20.3 ml/m\S\2 SV(MOD-sp2) 51.8 ml SI(MOD-sp2) 24.6 ml/m\S\2 Doppler Measurements and Calculations MV E max nathaniel 63.2 cm/sec MV A max nathaniel 98.4 cm/sec MV E/A 0.64 MV P1/2t max nathaniel 65.5 cm/sec MV P1/2t 72.6 msec MVA(P1/2t) 3.0 cm\S\2 MV dec slope 264.0 cm/sec\S\2 MV dec time 0.22 sec Ao V2 max 122.1 cm/sec Ao max PG 6.0 mmHg Ao max PG (full) 2.0 mmHg LV V1 max PG 3.9 mmHg LV V1 max 99.2 cm/sec PA V2 max 89.8 cm/sec PA max PG 3.2 mmHg TR max nathaniel 180.3 cm/sec
== END 2017-07-04 13:31 | disposition home or self-care (01) ==
LOC: C.EDB 12:35 → C.2E 14:52 → ENRESERV 15:31
PROVIDERS: ADMIT Internal Medicine; ATTEND Family Medicine
DX: F41.9 Anxiety disorder, unspecified (principal); R07.9 Chest pain, unspecified; I10 Essential (primary) hypertension; E78.5 Hyperlipidemia, unspecified; E66.9 Obesity, unspecified; G47.33 Obstructive sleep apnea (adult) (pediatric); Z79.899 Other long term (current) drug therapy; Z87.891 Personal history of nicotine dependence

== ENCOUNTER → 2017-10-31 | Outpatient (CLI) | payer OTHER, BC ==
[~2017-10-31] MED LIST changes: -AMB10 PO; +AZEL30SP NAE; +COEN1CAP37 PO; +CYAN10005 PO; -PANT40TA PO; -PSEU30TA20 PO; -TELM40TA PO; +TELM5TAB2 PO; +ZOLP5TAB PO
--- NOTE | 2017-10-31 09:33 | DIAGNOSTIC IMAGING REPORT ---
ABDOMEN COMPLETE (US) CLINICAL HISTORY: 82 years-old Female presenting with RUQ PAIN. TECHNIQUE: Real-time grayscale and limited color Doppler ultrasound imaging of the abdomen was performed. COMPARISON: 12/06/2015. FINDINGS: Pancreas: Visualized portions of the pancreatic head and body normal. Liver: Moderately hyperechogenic parenchyma with partial obscuration of the right hemidiaphragm, likely indicating moderate steatosis. No sonographic evidence of hepatic mass. Main portal vein patent with normal directional flow. Biliary: No intrahepatic biliary ductal dilatation. Common bile duct measures up to 3 mm in diameter. Gallbladder: Gallstones without evidence of gallbladder distention, wall thickening, or pericholecystic fluid or inflammatory change. Spleen: Normal in echogenicity and size, measuring 10.7 cm in length. Kidneys: Normal in size and echogenicity. Right kidney is grossly normal in size though partially obscured at the lower pole by bowel gas. Left kidney measures 11.2 cm. No hydronephrosis. Vasculature: Visualized portions of the IVC and abdominal aorta normal. Ascites: None. IMPRESSION: 1. Cholelithiasis. No evidence of cholecystitis or biliary ductal dilatation. 2. Hepatic steatosis. Correlate with liver function tests to exclude steatohepatitis as a cause for abdominal pain. Electronically signed by: Odin Da Silva M.D. 10/31/2017 9:31 AM Dictated Date/Time: 10/31/2017 9:29 AM
== END | disposition home or self-care (01) ==
LOC: C.ULTRBC 08:36
PROVIDERS: ATTEND Internal Medicine
DX: R10.11 Right upper quadrant pain (principal); K80.20 Calculus of gallbladder without cholecystitis without obstruction; K76.0 Fatty (change of) liver, not elsewhere classified

== ENCOUNTER → 2018-02-13 | Outpatient (CLI) | payer OTHER, BC ==
[2018-02-13 10:52] LABS: HEMATOCRIT 43.1 % (37-47); HEMOGLOBIN 14.1 g/dL (12.0-16.0); MEAN CELL VOLUME 90.7 fL (80-100); MEAN CORPUSCULAR HEMOGLOBIN 29.7 pg (25-34); MEAN CORPUSCULAR HGB CONC 32.7 g/dl (32-36); MEAN PLATELET VOLUME 9.9 fL (7.4-10.4); PLATELET COUNT 246 K/uL (130-400); RED CELL DISTRIBUTION WIDTH CV 12.7 % (11.5-14.5); RED CELL DISTRIBUTION WIDTH SD 41.9 fL (36.4-46.3); WHITE BLOOD COUNT 6.45 K/uL (4.8-10.8)
[2018-02-13 11:04] LABS: ALBUMIN 3.5 gm/dl (3.4-5.0); ALKALINE PHOSPHATASE 61 U/L (45-117); ALT/SGPT 27 U/L (12-78); AST/SGOT 15 U/L (15-37); BLOOD UREA NITROGEN 16 mg/dl (7-18); CALCIUM 8.7 mg/dl (8.5-10.1); CARBON DIOXIDE 26 mmol/L (21-32); CREATININE 0.85 mg/dl (0.60-1.20); GLUCOSE 98 mg/dl (70-99); POTASSIUM 4.1 mmol/L (3.5-5.1); SODIUM 140 mmol/L (136-145); TOTAL PROTEIN 6.9 gm/dl (6.4-8.2)
== END | disposition home or self-care (01) ==
LOC: C.LABBC 08:24
PROVIDERS: ATTEND Internal Medicine
DX: Z51.81 Encounter for therapeutic drug level monitoring (principal); Z79.899 Other long term (current) drug therapy; R60.9 Edema, unspecified

== ENCOUNTER 2021-09-01 04:09 | Inpatient (IN) ==
[2021-09-01] MEDS ORDERED: SODIUM CHLORIDE 0.9% 1000ML 1,000 ML IV STA (04:20)
[2021-09-01] MEDS ORDERED: MoRPHine SULFATE 4 MG/ML 1 ML CARP\\VIAL IV STA (04:20)
[2021-09-01] MEDS ORDERED: ONDANSETRON INJ 2 MG/ML 2 ML VIAL IV STA (04:20)
--- NOTE | 2021-09-01 04:28 | Emergency Department Note ---
History of Present Illness General Chief complaint: Abdominal Pain Stated complaint: Abdominal Pain Time Seen by Provider: 09/01/21 04:15 History of Present Illness Maximum Pain Intensity: 8 Patient is status post incisional hernia repair from Dr. Carranza on 30 August who states she had sudden onset of upper abdominal pain nausea vomiting that started at 1:30 AM this morning. Patient is taking oxycodone. Patient states that she has not had a bowel movement since prior to the surgery. Patient states the pain is moderate located in the upper abdomen with associated vomiting. There are no other mitigating or alleviating factors Home Medications Medication Instructions Recorded Confirmed Type lorazepam 1 mg tablet 1 mg PO DAILY PRN #10 tab 03/02/19 08/30/21 History pantoprazole 40 mg tablet,delayed 40 mg PO QPM tab 03/02/19 08/30/21 History release simvastatin 40 mg tablet 40 mg PO QPM tab 03/02/19 08/30/21 History telmisartan 20 mg tablet 20 mg PO QPM tab 03/02/19 08/30/21 History triamcinolone acetonide 0.1 % 1 applic TOPICAL DAILY PRN gm 03/02/19 08/30/21 History topical cream cholecalciferol (vitamin D3) 25 1,000 unit PO QPM 03/25/19 08/30/21 History mcg (1,000 unit) capsule (Vitamin D3) coQ10 (ubiquinol) 200 mg capsule 200 mg PO QPM 03/25/19 08/30/21 History cyanocobalamin (vitamin B-12) 1,000 mcg PO QPM 03/25/19 08/30/21 History 1,000 mcg tablet (Vitamin B-12) ketoconazole 2 % topical cream 1 applic TOPICAL DAILY PRN 03/25/19 08/30/21 History pseudoephedrine HCl 30 mg tablet 30 mg PO Q6H PRN 03/25/19 08/30/21 History zolpidem 5 mg tablet 5 mg PO HS 03/25/19 08/30/21 History CPAP Machine #1 ea 10/19/20 08/07/21 Rx aspirin 81 mg tablet,delayed 81 mg PO .three times a week tab 11/21/20 08/30/21 History release (Aspirin Low Dose) clobetasol 0.05 % topical ointment 1 applic TOP 2XWK #45 gm 12/05/20 08/30/21 Rx CPAP Machine #1 ea 01/30/21 08/07/21 Rx docusate sodium 100 mg PO 08/30/21 History guaifenesin 600 mg tablet, 400 mg PO 08/30/21 History extended release 12 hr (Mucinex) hydrocodone 5 mg-acetaminophen 325 1 - 2 tab PO .q4h- q6h PRN #15 tab 08/30/21 Rx mg tablet Allergies Allergy/AdvReac Type Severity Reaction Status Date / Time Sulfa (Sulfonamide AdvReac Unknown NAUSEA AND Verified 08/30/21 07:18 Antibiotics) VOMITING Past Med/Surg History Medical History Cardiac murmur hx of as child Carotid stenosis <50% blockage to bilateral ICAs per 2018 carotid duplex GERD (gastroesophageal reflux disease) UNDER CONTROL Hiatal hernia S/P REPAIR History of basal cell carcinoma Hyperlipidemia Hypertension IBS (irritable bowel syndrome) Per records Mitral valve prolapse syndrome follows with Dr. Sanchez/ [facility] Only mild mitral annual calcification on 07/05/17 DSE- otherwise MV unremarkable Skin cancer removed from several locations -BASAL CELL Sleep apnea CPAP Spinal stenosis Uterine fibroid Surgical History H/O colonoscopy H/O oral surgery tooth extractions History of adenoidectomy History of cardiac cath 1999= NO STENTS History of cholecystectomy HIATAL HERNIA REPAIR History of esophagogastroduodenoscopy (EGD) History of incisional hernia repair (08/30/21) Open Incisional Hernia Repair with Mesh - Michael Carranza DO 08/30/2021 History of Mohs micrographic surgery for skin cancer Hx of dilation and curettage x2 Hx of lymph node biopsy right arm Hx of tonsillectomy Family History Mother Acquired amyotrophic lateral sclerosis Father Lung cancer Father No problems noted. Brother Family history of diabetes mellitus Grandfather (Paternal) Family history of diabetes mellitus Social History Smoking Status: Unknown if ever smoked Years Smoked: 20; Second Hand Exposure: No; Hx Alcohol Use: Yes Alcohol type: wine Hx Substance Use: No Preferred Language: Hungarian Communication Ability: Effective Visual Impairment: No Limitations Tank Inspector Required: No Beliefs That Will Affect Care: None marital status: Current Living Situation: Spouse Current Living Situation Comment: [facility] current occupational status: retired How many Children do You have: 2 Feels Safe at Home: Yes Assistive Devices: Cane, Glasses and Walker Review of Systems A total of 10 systems reviewed and were otherwise negative Constitutional: no fever Gastrointestinal: + abdominal pain and + vomiting Physical Exam Vital Signs Vital Signs - 24 hr 09/01/21 04:13 09/01/21 04:33 09/01/21 05:24 Temperature 36.5 C Temperature Source Oral Pulse Rate 72 66 Pulse Rate [Left Radial] 67 Respiratory Rate 24 22 22 Respiratory Effort / Characteristics Non-Labored Non-Labored Respiratory Depth Normal Normal Blood Pressure [Right Arm] 143/79 H Blood Pressure Mean [Right Arm] 100 Blood Pressure Position Sitting Blood Pressure Position [Right Arm] Sitting Pulse Oximetry 92 91 Oxygen Delivery Method Room Air Room Air Room Air Sepsis Recent Fever Within 48 Hours No Sepsis New/Unexplained Change in Mental Status No Sepsis Action Taken by Nursing No Action Required 09/01/21 06:00 Temperature Temperature Source Pulse Rate Pulse Rate [Left Radial] 62 Respiratory Rate 22 Respiratory Effort / Characteristics Non-Labored Respiratory Depth Normal Blood Pressure [Right Arm] 142/58 H Blood Pressure Mean [Right Arm] 86 Blood Pressure Position Blood Pressure Position [Right Arm] Lying Pulse Oximetry 93 Oxygen Delivery Method Room Air Sepsis Recent Fever Within 48 Hours Sepsis New/Unexplained Change in Mental Status Sepsis Action Taken by Nursing VITAL SIGNS - Vital signs and nursing notes were reviewed. GENERAL -86-year-old female appearing her stated age who is in no acute distress. Communicates well with provider and answers questions appropriately. SKIN - Without rashes. HEAD - NC/AT. EYES - PERRL with EOMI bilaterally. Sclera anicteric. Palpebral conjunctiva pink and moist with no injection noted. EARS - No deformities of external structures noted on gross examination bilaterally. NOSE - Midline and without cyanosis. No epistaxis or purulent drainage noted. Septum midline without deviation or septal hematoma noted. MOUTH/OROPHARYNX - Without perioral cyanosis. NECK - Neck with FROM. Supple LUNGS - Chest wall symmetric without accessory muscle use, intercostals retractions, or central cyanosis. Normal vesicular breath sounds CTA B/L. No wheezes, rales, or rhonchi appreciated. CARDIAC - RRR with S1/S2. No murmur, rubs, or gallops appreciated. ABDOMEN - Abdominal contour soft, distended; midline surgical site with bandage present; decreased bowel sounds;tenderness with palpation in the midepigastric regarding EXTREMITIES - No clubbing or peripheral cyanosis. . +5/5 strength noted in UE/LE bilaterally. NEUROLOGIC - Cranial nerves II through XII grossly intact. PSYCH - A&Ox3 and cooperates fully with examiner. Pt is very pleasant and interacts well with examiner. Course Reevaluation(s) Reevaluation #1: Pt was started on IV fluids, Zofran, was offered morphine she initially had refused. Patient has not had any episodes of vomiting throughout emergency department evaluation. At 6:59 AM the patient was admitted to the hospitalist service, phone call pending from Dr. Carranza from surgery. Administered Medications Discontinued Medications Sodium Chloride (Nss 1000ml) 1,000 mls @ 999 mls/hr IV .Q1H1M STA Stop: 09/01/21 05:20 Last Infusion: 09/01/21 06:37 Dose: 0 mls/hr Documented by: [id number] Admin: 09/01/21 04:26 Dose: 999 mls/hr Documented by: [id number] Ioversol (Optiray 320 100ml) 94 ml IV ONCE ONE Stop: 09/01/21 05:22 Last Admin: 09/01/21 05:22 Dose: 94 ml Documented by: [id number] Ondansetron HCl (Ondansetron Inj 2 Mg/Ml 2 Ml Vial) 4 mg IV NOW STA Stop: 09/01/21 04:21 Last Admin: 09/01/21 04:25 Dose: 4 mg Documented by: [id number] Medical Decision Making Medical Records Attestation: I reviewed the patient's medical records. Laboratory Data Attestation: I reviewed the patient's lab results. Result diagrams: 09/01/21 04:30 09/01/21 04:30 Lab Results 09/01/21 09/01/21 Range/Units 04:30 04:30 WBC 12.42 H (4.8-10.8) K/uL RBC 5.34 (4.2-5.4) M/uL Hgb 16.3 H (12.0-16.0) g/dL Hct 47.6 H (37-47) % MCV 89.1 (80-100) fL MCH 30.5 (25-34) pg MCHC 34.2 (32-36) g/dL RDW Std Deviation 40.3 (36.4-46.3) fL RDW Coeff of [place]inee 12.5 (11.5-14.5) % Plt Count 173 (130-400) K/uL MPV 9.6 (7.4-10.4) fL Immature Gran % (Auto) 0.3 % Neut % (Auto) 83.2 % Lymph % (Auto) 9.7 % [place] % (Auto) 5.4 % Eos % (Auto) 1.2 % Baso % (Auto) 0.2 % Neut # (Auto) 10.34 H (1.4-6.5) K/uL Lymph # (Auto) 1.20 (1.2-3.4) K/uL [place] # (Auto) 0.67 H (0.11-0.59) K/uL Eos # (Auto) 0.15 (0-0.5) K/uL Baso # (Auto) 0.02 (0-0.2) K/uL Immature Gran # (Auto) 0.04 H (0.00-0.02) K/uL Sodium 134 L (136-145) mmol/L Potassium 3.8 (3.5-5.1) mmol/L Chloride 100 (98-107) mmol/L Carbon Dioxide 24 (21-32) mmol/L Anion Gap 10 (3-11) BUN 16 (6-23) mg/dl Creatinine 0.72 (0.6-1.2) mg/dl Est Cr Clr Drug Dosing 68.2 ml/min Est GFR ( Amer) 89.1 ml/min Est GFR (Non-Af Amer) 76.9 ml/min BUN/Creatinine Ratio 22.2 H (10-20) Glucose 162 H (70-99(Fasting)) mg/dl Calcium 9.9 (8.5-10.1) mg/dl Total Bilirubin 1.0 (0.2-1.0) mg/dl AST 30 (13-39) U/L ALT 28 (7-52) U/L Alkaline Phosphatase 54 (34-104) U/L Total Protein 7.4 (6.0-8.3) gm/dl Albumin 4.4 (3.4-5.0) gm/dl Globulin 3.0 (2.5-4.0) gm/dl Albumin/Globulin Ratio 1.5 (0.9-2) Lipase 15 (11-82) U/L Imaging Data Radiologist's Impression: CT abdomen pelvis per radiology states there is a 6.1 cm diameter fluid collection with surrounding erythema and subcutaneous tissues of the mid anterior abdominal wall, small bowel loops are dilated measuring up to 3.2 cm in diameter the distal ileal loops are decompressed in the pelvis suggesting the presence of a partial distal small bowel obstruction ECG Data Attestation: I personally reviewed and interpreted this ECG as follows: Additional Comments: EKG interpreted by me sinus rhythm rate of 63 first-degree AV block left axis deviation and incomplete right bundle branch block there is no obvious ST segment elevation or depression MDM Narrative Medical decision making differential diagnosis postoperative pain, bowel obstruction, gastritis, gastroenteritis; will check labs, CT, will give IV fluids pain medicine nausea medicine Impression & Plan Small bowel obstruction, Abdominal pain Discharge Plan Visit Data Chief Complaint: Abdominal Pain Stated Complaint: Abdominal Pain ED Provider: Richie Monroe Discharge Problem: Small bowel obstruction, Abdominal pain Patient Disposition: Being Evaluated by Hospitalist Forms Stand Alone Forms: My [facility] Prescriptions Prescriptions: No Action (DME) CPAP Machine Misc See Rx Instructions .MEDSUPPLY Qty: 1 RF: 0 clobetasol 0.05 % ointment 1 applic TOP 2XWK Qty: 45 RF: 2 (DME) CPAP Machine Misc See Rx Instructions .MEDSUPPLY Qty: 1 RF: 0 lorazepam 1 mg tablet 1 mg PO DAILY PRN (Reason: Anxiety) Qty: 10 RF: 0 simvastatin 40 mg tablet 40 mg PO QPM RF: 0 pantoprazole 40 mg tablet,delayed release (DR/EC) 40 mg PO QPM RF: 0 telmisartan 20 mg tablet 20 mg PO QPM RF: 0 triamcinolone acetonide 0.1 % cream 1 applic topical DAILY PRN (Reason: SKIN ISSUES) RF: 0 cyanocobalamin (vitamin B-12) [Vitamin B-12] 1,000 mcg Tablet 1,000 mcg PO QPM RF: 0 ketoconazole 2 % Cream 1 applic TOPICAL DAILY PRN (Reason: SKIN RASHES) RF: 0 cholecalciferol (vitamin D3) [Vitamin D3] 1,000 unit Capsule 1,000 unit PO QPM RF: 0 coQ10 (ubiquinol) 200 mg Capsule 200 mg PO QPM RF: 0 pseudoephedrine HCl 30 mg Tablet 30 mg PO Q6H PRN (Reason: Nasal Congestion) RF: 0 zolpidem 5 mg Tablet 5 mg PO HS RF: 0 aspirin [Aspirin Low Dose] 81 mg tablet,delayed release (DR/EC) 81 mg PO .three times a week RF: 0 guaifenesin [Mucinex] 600 mg Tablet Extended Release 12hr 400 mg PO RF: 0 docusate sodium 100 mg PO RF: 0 hydrocodone-acetaminophen 5-325 mg tablet 1 - 2 tab PO .q4h- q6h PRN (Reason: pain, for initial therapy, max 6 tabs per day ) Qty: 15 RF: 0 Referrals Referrals: Imani Alford [Primary Care Provider] - Discharge Problem: Abdominal pain Qualifiers: Abdominal location: epigastric Qualified Code(s): R10.13 - Epigastric pain
[2021-09-01 04:45] LABS: Basophils # (auto) 0.02 K/uL (0-0.2); Basophils % (auto) 0.2 %; Eosinophils # (auto) 0.15 K/uL (0-0.5); Eosinophils % (auto) 1.2 %; Hematocrit (blood only) 47.6 % (37-47); Hemoglobin 16.3 g/dL (12.0-16.0); Immature Granulocytes # (auto) 0.04 K/uL (0.00-0.02); Immature Granulocytes % (auto) 0.3 %; Lymphocytes % (auto) 9.7 %; Mean Corpuscular Hemoglobin 30.5 pg (25-34); Mean Corpuscular Hgb Conc 34.2 g/dL (32-36); Mean Corpuscular Volume 89.1 fL (80-100); Mean Platelet Volume 9.6 fL (7.4-10.4); Monocytes # (auto) 0.67 K/uL (0.11-0.59); Monocytes % (auto) 5.4 %; Neutrophils # (auto) 10.34 K/uL (1.4-6.5); Neutrophils % (auto) 83.2 %; Platelet Count 173 K/uL (130-400); RDW Coefficient of Variation 12.5 % (11.5-14.5); RDW Standard Deviation 40.3 fL (36.4-46.3); Red Blood Count 5.34 M/uL (4.2-5.4); White Blood Count 12.42 K/uL (4.8-10.8)
[2021-09-01 05:03] LABS: Albumin Globulin Ratio 1.5 (0.9-2); Albumin Level 4.4 gm/dl (3.4-5.0); BUN Creatinine Ratio 22.2 (10-20); Calcium 9.9 mg/dl (8.5-10.1); Creatinine Clr Calc Pharmacy 68.2 ml/min; Est GFR (African American) 89.1 ml/min; Est GFR (Non-African American) 76.9 ml/min; Potassium 3.8 mmol/L (3.5-5.1); Total Protein 7.4 gm/dl (6.0-8.3)
[2021-09-01] MEDS ORDERED: OPTIRAY 320 100ml IV ONE (05:21)
--- NOTE | 2021-09-01 07:07 | History & Physical Report ---
Date of Service September 01, 2021 Assessment & Plan (1) Small bowel obstruction: Plan: Surekha is a 86-year-old female recently discharged after a open incisional hernia repair with mesh 08/30/2021, and a history of anxiety, gallstones, GERD, hyperlipidemia, hypertension who presents with worsening nausea acutely worsened in the last day with recurrent vomiting since [address] scan indicative of small bowel obstruction. Small bowel obstruction CTA/P: Small bowel obstruction, fluid collection suspicious for seroma Patient with nausea, no bowel movements N.p.o. Surgery consulted NGT to LIS NSS 120 cc/h Continue serial exam (2) Hyperlipidemia: Plan: Resume simvastatin when able to take p.o. meds (3) GERD (gastroesophageal reflux disease): Plan: Resume PPI when able to take p.o. IV famotidine while n.p.o. (4) Obstructive apnea: Plan: CPAP nightly as needed (5) Incisional hernia, incarcerated: Plan: Post surgical repair, surgery consulted. Dressing C/D/I (6) Hypertension: Plan: Telmisartan held while n.p.o. Hydralazine IV every 6 hours as needed, resume p.o. meds when able If additional antihypertensive IV control needed consider moving to telemetry Plan: DVT prophylaxis: Heparin weight adjust, scds Diet: N.p.o. Disposition: Medical/surgical CODE STATUS: DNR/DNI, discussed with patient History of Present Illness Primary Care Provider: [facility] Had surgery 2 days ago Last night just felt 'off and a little sick.' Appetite has been poor since discharge Last bowel movement was prior to her recent surgery Last ~1am suddenly felt much more nauseaus and ill with pain across her lower abdomen not at her incisional site 'more like my stomach and with cramps.' Has thrown up nearly continuously since 1am and still feels very nauseus. At the beginning was yellowish and is not sure since beign in the ambulance on her way here Has had some pressure in her lower chest, no chest pain. No shortness of breath. No fevers or chills. Has been cold, but no chills. HTN HLD No history of heart diseas quentin hx of lung disease uses a CPAP at night Medical History: Reviewed Medications: Reviewed Surgical History: Reviewed Allergies: Reviewed Social History:No tobacco use. 1 glass of wine with dinner daily, none since before her surgery Code Status: Surrogate decision maker would be her son Micky Mcgowan 'Conner.' DNI/DNR Allergies Allergy/AdvReac Type Severity Reaction Status Date / Time Sulfa (Sulfonamide AdvReac Unknown NAUSEA AND Verified 08/30/21 07:18 Antibiotics) VOMITING Home Medications Medication Instructions Recorded Confirmed Type lorazepam 1 mg tablet 1 mg PO DAILY PRN #10 tab 03/02/19 08/30/21 History pantoprazole 40 mg tablet,delayed 40 mg PO QPM tab 03/02/19 08/30/21 History release simvastatin 40 mg tablet 40 mg PO QPM tab 03/02/19 08/30/21 History telmisartan 20 mg tablet 20 mg PO QPM tab 03/02/19 08/30/21 History triamcinolone acetonide 0.1 % 1 applic TOPICAL DAILY PRN gm 03/02/19 08/30/21 History topical cream cholecalciferol (vitamin D3) 25 1,000 unit PO QPM 03/25/19 08/30/21 History mcg (1,000 unit) capsule (Vitamin D3) coQ10 (ubiquinol) 200 mg capsule 200 mg PO QPM 03/25/19 08/30/21 History cyanocobalamin (vitamin B-12) 1,000 mcg PO QPM 03/25/19 08/30/21 History 1,000 mcg tablet (Vitamin B-12) ketoconazole 2 % topical cream 1 applic TOPICAL DAILY PRN 03/25/19 08/30/21 History pseudoephedrine HCl 30 mg tablet 30 mg PO Q6H PRN 03/25/19 08/30/21 History zolpidem 5 mg tablet 5 mg PO HS 03/25/19 08/30/21 History CPAP Machine #1 ea 10/19/20 08/07/21 Rx aspirin 81 mg tablet,delayed 81 mg PO .three times a week tab 11/21/20 08/30/21 History release (Aspirin Low Dose) clobetasol 0.05 % topical ointment 1 applic TOP 2XWK #45 gm 12/05/20 08/30/21 Rx CPAP Machine #1 ea 01/30/21 08/07/21 Rx docusate sodium 100 mg PO 08/30/21 History guaifenesin 600 mg tablet, 400 mg PO 08/30/21 History extended release 12 hr (Mucinex) hydrocodone 5 mg-acetaminophen 325 1 - 2 tab PO .q4h- q6h PRN #15 tab 08/30/21 Rx mg tablet Past Med/Surg History Medical History Cardiac murmur hx of as child Carotid stenosis <50% blockage to bilateral ICAs per 2018 carotid duplex GERD (gastroesophageal reflux disease) UNDER CONTROL Hiatal hernia S/P REPAIR History of basal cell carcinoma Hyperlipidemia Hypertension IBS (irritable bowel syndrome) Per records Mitral valve prolapse syndrome follows with Dr. Sanchez/ [facility] Only mild mitral annual calcification on 07/05/17 DSE- otherwise MV unremarkable Skin cancer removed from several locations -BASAL CELL Sleep apnea CPAP Spinal stenosis Uterine fibroid Surgical History H/O colonoscopy H/O oral surgery tooth extractions History of adenoidectomy History of cardiac cath 1999= NO STENTS History of cholecystectomy HIATAL HERNIA REPAIR History of esophagogastroduodenoscopy (EGD) History of incisional hernia repair (08/30/21) Open Incisional Hernia Repair with Mesh - Michael Carranza DO 08/30/2021 History of Mohs micrographic surgery for skin cancer Hx of dilation and curettage x2 Hx of lymph node biopsy right arm Hx of tonsillectomy Family History Mother Acquired amyotrophic lateral sclerosis Father Lung cancer Father No problems noted. Brother Family history of diabetes mellitus Grandfather (Paternal) Family history of diabetes mellitus Social History Smoking Status: Unknown if ever smoked Years Smoked: 20; Second Hand Exposure: No; Hx Alcohol Use: Yes Alcohol type: wine Hx Substance Use: No Preferred Language: Montserratian Communication Ability: Effective Visual Impairment: No Limitations Judicial Administrative Assistant Required: No Beliefs That Will Affect Care: None marital status: Current Living Situation: Spouse Current Living Situation Comment: [facility] current occupational status: retired How many Children do You have: 2 Feels Safe at Home: Yes Assistive Devices: Cane, Glasses and Walker Review of Systems Review of Systems: All systems reviewed & are unremarkable except as noted in HPI & below Physical Exam Physical Exam: General: A&Ox3. NAD. Cooperative. Peers nauseous. HEENT: Atraumatic, normocephalic. Visual acuity/hearing grossly intact. Pulm: CTAB A&P. -wheezes, -rales, -rhonchi. Symmetrical chest rise. No increased work of breathing. No respiratory distress. Cardiac: RRR, -mrg. Radial pulses intact and symmetrical. Abdominal: Softly distended, diffuse tenderness in lower abdominal/umbilical abdomen without guarding/rebound. Bowel sounds diminished. Surgical dressing intact C/C/I. Remedies: Warm, dry, no edema. Sensation intact in hands and feet to soft touch. Transit Coach Operator strength, ankle dorsiflexion/plantarflexion intact and symmetrical. Results & Data Results & Data ([facility]) Vital Signs (Past 12 Hours) Vital Signs Temp Pulse Pulse Resp BP Pulse Ox 09/01/21 06:00 62 22 142/58 H 93 09/01/21 05:24 67 22 143/79 H 91 09/01/21 04:33 66 22 09/01/21 04:13 36.5 C 72 24 92 PG Care Time/CCT Total # of Minutes Spent Total Time Spent with Patient: Total time spent is greater than 50% in coordination of care (as documented) at patient's floor/unit and/or counseling patient: Coding Level of Care Code 37539 Initial Inpt Care Lvl 2 Diagnoses Small bowel obstruction K56.609 Hyperlipidemia E78.5 GERD (gastroesophageal reflux disease) K21.9 Obstructive apnea G47.33 Incisional hernia, incarcerated K43.0 Hypertension I10
--- NOTE | 2021-09-01 07:28 | CT Scan Report ---
ABDOMEN AND PELVIS CT WITH IV CONTRAST CT DOSE: 1452.10 mGy.cm HISTORY: Generalized abdominal pain. Postop. Vomiting. Status post hernia repair. TECHNIQUE: Multiaxial CT images of the abdomen and pelvis were performed following the use of intrave nous contrast. A dose lowering technique was utilized adhering to the principles of ALARA. COMPARISON STUDY: Abdomen and pelvis CT 04/14/2019. FINDINGS: Bibasilar subsegmental atelectasis is noted. No pneumoperitoneum. No pneumatosis. No fractu res within the visualized osseous structures. Hepatic steatosis. Prior cholecystectomy. The pancreas, spleen, adrenal glands, and kidneys are unremarkable. No hydronephrosis. No retroperitoneal lymphade nopathy. High-grade stenosis at the takeoff of the right common iliac artery due to the atherosclerot ic plaque. The bladder is unremarkable. Calcified uterine fibroids are again noted. No pelvic free fl uid. Colonic diverticulosis. No evidence for acute diverticulitis. Moderate stool within the proximal colon. Normal appendix. Multiple mildly dilated gas and fluid-filled loops of small bowel to the lev el the mid abdomen where there is focally decompressed loops abutting the anterior abdominal wall jozef r the site of the supraumbilical hernia repair. This is consistent with the transition point for a sm all bowel obstruction. The transition point is best seen on image 277. Subcutaneous gas and fluid at the supraumbilical hernia site the fluid collection measuring 4.7 cm. This favors a postoperative ser kellie. No definite residual supra umbilical hernia identified at this time. A few punctate foci of extr aluminal gas adjacent to the anterior abdominal wall best seen on image 276. This could be due to the recent postoperative change. IMPRESSION: 1. Dilated gas and fluid-filled loops of proximal to mid small bowel with a transition point abutting the anterior abdominal wall near the site of the supraumbilical hernia repair. This is consistent wi th a small bowel obstruction. No definite evidence for recurrent/residual abdominal hernia. Therefore , this could be due to an adhesion. Surgical consultation recommended. 2. Gas and fluid collection within the anterior abdominal wall at the hernia incision site. This favo rs recent postoperative change. 3. Additional findings as described above. ACT 112: Negative or not required by law. Electronically signed by: Elio Marroquin M.D. 09/01/2021 7:27 AM
[2021-09-01] MEDS ORDERED: LORazepam 2 MG/1 ML VIAL IV ONE (07:29)
[2021-09-01] MEDS ORDERED: MoRPHine SULFATE 2 MG/ML CARP ONE (07:37)
--- NOTE | 2021-09-01 08:25 | Electrocardiogram Report ---
Test Reason : Blood Pressure : / mmHG Vent. Rate : 063 BPM Atrial Rate : 063 BPM P-R Int : 202 ms QRS Dur : 096 ms QT Int : 438 ms P-R-T Axes : 039 -40 042 degrees QTc Int : 448 ms Normal sinus rhythm Left anterior fascicular block Low voltage QRS Incomplete right bundle branch block Poor R wave progression, consider anterior GA vs. lead placement vs. LVH Abnormal ECG When compared with ECG of 14-APR-2019 16:32, No significant change Confirmed by Ranjan Rodríguez ([id number]) on 09/01/2021 8:24:53 AM Referred By: REFERRED SELF Confirmed By:Ranjan Rodríguez
[2021-09-01] MEDS ORDERED: SODIUM CHLORIDE 0.9% 1000ML 1,000 ML IV SCH (10:30)
[2021-09-01] MEDS: ONDANSETRON INJ 2 MG/ML 2 ML VIAL IV PRN ×3 (10:59→23:54)
--- NOTE | 2021-09-01 10:59 | Surgery Consultation ---
Date of Consultation September 01, 2021 Assessment & Plan (1) Abdominal pain: ileus vs SBO, mild bowel distention seroma would be expected agree with NGT, IVF, seen with Dr. Penny History of Present Illness Attending Physician: Odin Oconnell MD History of Present Illness 86 y/o female POD 2 open repair ventral/incisional hernia with 8 cm mesh. Began having N/V last evening and came to ER overnight. Had taken only a few Percocet, hadn't eaten much and has not had BM or much flatus. Allergies Allergy/AdvReac Type Severity Reaction Status Date / Time nitrofurantoin AdvReac Mild Nausea/Vomi Unverified 09/01/21 07:52 [From Macrodantin] ting Sulfa (Sulfonamide AdvReac Unknown NAUSEA AND Verified 09/01/21 07:52 Antibiotics) VOMITING Home Medications Medication Instructions Recorded Confirmed Type lorazepam 1 mg tablet 1 mg PO DAILY PRN #10 tab 03/02/19 09/01/21 History pantoprazole 40 mg tablet,delayed 40 mg PO QPM tab 03/02/19 09/01/21 History release simvastatin 40 mg tablet 40 mg PO QPM tab 03/02/19 09/01/21 History telmisartan 20 mg tablet 20 mg PO QPM tab 03/02/19 09/01/21 History triamcinolone acetonide 0.1 % 1 applic TOPICAL DAILY PRN gm 03/02/19 09/01/21 History topical cream cholecalciferol (vitamin D3) 25 1,000 unit PO QPM 03/25/19 09/01/21 History mcg (1,000 unit) capsule (Vitamin D3) coQ10 (ubiquinol) 200 mg capsule 200 mg PO QPM 03/25/19 09/01/21 History cyanocobalamin (vitamin B-12) 1,000 mcg PO QPM 03/25/19 09/01/21 History 1,000 mcg tablet (Vitamin B-12) ketoconazole 2 % topical cream 1 applic TOPICAL DAILY PRN 03/25/19 09/01/21 History pseudoephedrine HCl 30 mg tablet 30 mg PO Q6H PRN 03/25/19 09/01/21 History zolpidem 5 mg tablet 5 mg PO HS 03/25/19 09/01/21 History CPAP Machine #1 ea 10/19/20 08/07/21 Rx aspirin 81 mg tablet,delayed 81 mg PO 3XWK tab 11/21/20 09/01/21 History release (Aspirin Low Dose) clobetasol 0.05 % topical ointment 1 applic TOP 2XWK #45 gm 12/05/20 09/01/21 Rx CPAP Machine #1 ea 01/30/21 08/07/21 Rx docusate sodium 100 mg capsule 100 mg PO TID #0 08/30/21 09/01/21 History guaifenesin 600 mg tablet, 400 mg PO HS 08/30/21 09/01/21 History extended release 12 hr (Mucinex) hydrocodone 5 mg-acetaminophen 325 1 - 2 tab PO Q4H PRN 09/01/21 09/01/21 History mg tablet Patient History Medical History Cardiac murmur hx of as child Carotid stenosis <50% blockage to bilateral ICAs per 2018 carotid duplex GERD (gastroesophageal reflux disease) UNDER CONTROL Hiatal hernia S/P REPAIR History of basal cell carcinoma Hyperlipidemia Hypertension IBS (irritable bowel syndrome) Per records Mitral valve prolapse syndrome follows with Dr. Sanchez/ [facility] Only mild mitral annual calcification on 07/05/17 DSE- otherwise MV unremarkable Skin cancer removed from several locations -BASAL CELL Sleep apnea CPAP Spinal stenosis Uterine fibroid Surgical History H/O colonoscopy H/O oral surgery tooth extractions History of adenoidectomy History of cardiac cath 1999= NO STENTS History of cholecystectomy HIATAL HERNIA REPAIR History of esophagogastroduodenoscopy (EGD) History of incisional hernia repair (08/30/21) Open Incisional Hernia Repair with Mesh - Michael Carranza, 08/30/2021 History of Mohs micrographic surgery for skin cancer Hx of dilation and curettage x2 Hx of lymph node biopsy right arm Hx of tonsillectomy Family History Mother Acquired amyotrophic lateral sclerosis Father Lung cancer Father No problems noted. Brother Family history of diabetes mellitus Grandfather (Paternal) Family history of diabetes mellitus Social History Smoking Status: Former smoker Years Smoked: 20; Second Hand Exposure: No; Hx Alcohol Use: Yes Alcohol type: wine Hx Substance Use: No Preferred Language: Estonian Communication Ability: Effective Visual Impairment: No Limitations Associate Professor Of Counseling Required: No Beliefs That Will Affect Care: None marital status: Current Living Situation: Spouse Current Living Situation Comment: With current occupational status: retired How many Children do You have: 2 Other Information That Helps Us Care for You: No Feels Safe at Home: Yes Safety Concerns: Feels Safe At This Time Assistive Devices: Cane, Glasses and Walker Review of Systems Constitutional: no fever and no chills Gastrointestinal: + abdominal pain, + bloating, + nausea and + vomiting Physical Exam Constitutional: WD/WN, vitals as above Respiratory: no respiratory distress Cardiovascular: Rate/Rhythm: regular rate Gastrointestinal (Abdomen): Inspection/Auscultation: + abdomen distended (minimal) and + abdominal surgical incision (minimal erythema near umbilicus (below incision), no drainage ) NG 300 cc Results & Data ([facility]) Vital Signs (Past 12 Hours) Vital Signs Temp Pulse Pulse Resp BP Pulse Ox 09/01/21 08:27 65 16 133/64 98 09/01/21 07:00 56 L 18 152/68 H 98 09/01/21 06:00 62 22 142/58 H 93 09/01/21 05:24 67 22 143/79 H 91 09/01/21 04:33 66 22 09/01/21 04:13 36.5 C 72 24 92 PG Care Time/CCT Total # of Minutes Spent Total Time Spent with Patient: Total time spent is greater than 50% in coordination of care (as documented) at patient's floor/unit and/or counseling patient: Coding Level of Care Code None Diagnoses Abdominal pain R10.13 Abdominal location: epigastric (1) Abdominal pain Abdominal location: epigastric Qualified Code(s): R10.13 - Epigastric pain
[2021-09-01] MEDS ORDERED: CHLORASEPTIC 1.4% SOLN 180 ML BTL MT PRN (11:01)
[2021-09-01] MEDS: MoRPHine SULFATE 2 MG/ML CARP IV PRN ×2 (11:16→21:24)
[2021-09-01] MEDS ORDERED: FAMOTIDINE 20 MG in SYRINGE 3 ML IV ONE (11:30)
--- NOTE | 2021-09-01 11:58 | XRay Report ---
KUB HISTORY: Small bowel obstruction. Evaluate NG tube placement. COMPARISON: Abdomen and pelvis CT 09/01/2021. FINDINGS: Nasogastric tube terminates in the proximal stomach with the fenestrated line at the gastro esophageal junction. Therefore, this should be advanced by approximately 5 cm. Poststernotomy. Dilate d gas-filled loops of small bowel are again noted with the patient's known small bowel obstruction. C alcified uterine fibroids are partially visualized. No renal calculi. No ureteral calculi. No pneumo peritoneum or pneumatosis. IMPRESSION: 1. The nasogastric tube terminates in the proximal stomach. This should be advanced by approximately 5 cm. 2. Redemonstration of the patient's small bowel obstruction. ACT 112: Negative or not required by law. Electronically signed by: Elio Marroquin M.D. 09/01/2021 11:57 AM
[2021-09-01] MEDS: HEPARIN SOD 5,000 UNIT/0.5 ML VIAL SQ SCH ×2 (14:05→20:32)
--- NOTE | 2021-09-01 14:20 | Hospitalist Progress Note ---
Date of Service September 01, 2021 Assessment & Plan (1) Small bowel obstruction: Plan: Surekha is a 86-year-old female recently discharged after a open incisional hernia repair with mesh 08/30/2021, and a history of anxiety, gallstones, GERD, hyperlipidemia, hypertension who presents with worsening nausea acutely worsened in the last day with recurrent vomiting since [address] scan indicative of small bowel obstruction. CTA/P: Small bowel obstruction, fluid collection suspicious for seroma would favor post-op Ileus given recent surgery; however, could have mechanical SBO given h/o of laparoscopic cholecystectomy and hernia repair done November 2020. Continue n.p.o. status for bowel rest Continue NGT at low to intermittent suction for GI decompression. KUB ordered to assess placement of NGT given lack of gastric contents in canister. Needs advanced by 5 cm. Nurse made aware Continue IV morphine as needed for pain in addition to IV Zofran as needed for nausea Ambulation encouraged Follow-up imaging in the a.m. We will continue to follow clinically General surgery consultedappreciate assistance (2) Leukocytosis: Plan: Suspect reactive from vomiting. We will continue to trend. Hold off on antibiotics for now (3) Hyperlipidemia: Plan: Resume simvastatin when able to take p.o. meds (4) GERD (gastroesophageal reflux disease): Plan: Resume PPI when able to take p.o. IV famotidine while n.p.o. (5) Obstructive apnea: Plan: CPAP nightly as needed (6) Incisional hernia, incarcerated: Plan: Post surgical repair, surgery consulted. Dressing C/D/I (7) Hypertension: Plan: Telmisartan held while n.p.o. Hydralazine IV every 6 hours as needed, resume p.o. meds when able If additional antihypertensive IV control needed consider moving to telemetry Plan: DVT prophylaxis: Heparin weight adjust, scds Diet: N.p.o. Disposition: Medical/surgical CODE STATUS: DNR/DNI plan of care to be d/w Dr. Austin. Further orders as warranted. Admission and Anticipated Discharge Date Admission Date: September 01, 2021 Supervising Physician Co-Signing Physician Notes chart reviewed, case d/w J Jannette PAC - agree w above Subjective Patient seen on daily rounds today. Hospitalized in the selling specialist hours with a small bowel obstruction s/p recent herniorrhaphy (done 08/30). Currently with an NGT in place. Is complaining of some mild nausea. Overall, abdominal pain and distention improved. Review of Systems Review of Systems: All systems reviewed and are unremarkable except as noted in HPI and below Denies fevers, chills, headache, nasal congestion, sore throat, cough, chest pain, shortness of breath, palpitations, orthopnea, PND, diarrhea, constipation, dysuria, hematuria, frequency, back pain, joint pain or swelling, easy bruising or bleeding, skin lesions or rashes. Physical Exam Physical Exam: General: Sitting upright in her hospital bed. Appears uncomfortable given the NGT in place but does not appear ill or toxic HEENT: Head is AT/NC. Buccal mucosa is moist and pink Neck: No JVD. Negative hepatojugular reflex Cardiac: RRR without M/G/R Lungs: CTA without W/R/R Abdomen: Hypoactive BS in all quadrants. Abdomen is not distended and is soft. Currently NT throughout Extremities: No peripheral clubbing cyanosis or edema Neuro: A&O X4. Cranial nerves II through XII are grossly intact. No focal neuro deficits Skin: No obvious skin lesions or rashes Psych: Appropriate affect. Pleasant and cooperative Results & Data Results & Data ([facility]) Vital Signs (Past 12 Hours) Vital Signs Temp Pulse Pulse Pulse Resp BP Pulse Ox 09/01/21 11:20 36.5 C 58 L 16 131/80 92 09/01/21 08:27 65 16 133/64 98 09/01/21 07:00 56 L 18 152/68 H 98 09/01/21 06:00 62 22 142/58 H 93 09/01/21 05:24 67 22 143/79 H 91 09/01/21 04:33 66 22 09/01/21 04:13 36.5 C 72 24 92 PG Care Time/CCT Total # of Minutes Spent Total Time Spent with Patient: Total time spent is greater than 50% in coordination of care (as documented) at patient's floor/unit and/or counseling patient: Coding Level of Care Code None Diagnoses Small bowel obstruction K56.609 Hyperlipidemia E78.5 GERD (gastroesophageal reflux disease) K21.9 Obstructive apnea G47.33 Incisional hernia, incarcerated K43.0 Hypertension I10 Leukocytosis D72.829
[2021-09-01] MEDS: FAMOTIDINE 20 MG in SYRINGE 3 ML IV SCH (20:32)
[2021-09-01 21:42] LABS: Appearance Urine Clear (Clear); Bacteria Urine Automated Negative (Negative); Bilirubin Urine Negative (Negative); Blood Urine Negative (Negative); Color Urine Dark Yellow; Epithelial Cell Urine Auto >30 /lpf (0-5); Glucose Urine UA Negative (Negative); Ketones Urine 2+ (Negative); Leukocyte Esterase Urine Negative (Negative); Nitrite Urine Negative (Negative); Protein Urine Trace (Negative); RBC Urine Automated 0-4 /hpf (0-4); Specific Gravity Urine 1.039 (1.000-1.030); Urobilinogen Urine Negative (Negative); pH Urine 5.5 (4.5-7.5)
[2021-09-02] MEDS: MoRPHine SULFATE 2 MG/ML CARP IV PRN (04:11)
[2021-09-02] MEDS ORDERED: ONDANSETRON INJ 2 MG/ML 2 ML VIAL IV ONE (04:31)
[2021-09-02] MEDS: HEPARIN SOD 5,000 UNIT/0.5 ML VIAL SQ SCH ×3 (05:33→20:44)
[2021-09-02] MEDS: ONDANSETRON INJ 2 MG/ML 2 ML VIAL IV PRN (05:34)
[2021-09-02 06:52] LABS: Hemoglobin 14.9 g/dL (12.0-16.0); Mean Corpuscular Hemoglobin 30.2 pg (25-34); Mean Corpuscular Hgb Conc 33.1 g/dL (32-36); Mean Corpuscular Volume 91.3 fL (80-100); Mean Platelet Volume 9.9 fL (7.4-10.4); Platelet Count 263 K/uL (130-400); RDW Coefficient of Variation 12.7 % (11.5-14.5); RDW Standard Deviation 42.5 fL (36.4-46.3); Red Blood Count 4.93 M/uL (4.2-5.4); White Blood Count 8.57 K/uL (4.8-10.8)
[2021-09-02 07:17] LABS: Basophils # (auto) 0.02 K/uL (0-0.2); Basophils % (auto) 0.2 %; Eosinophils # (auto) 0.05 K/uL (0-0.5); Eosinophils % (auto) 0.6 %; Immature Granulocytes # (auto) 0.02 K/uL (0.00-0.02); Immature Granulocytes % (auto) 0.2 %; Lymphocytes # (auto) 0.93 K/uL (1.2-3.4); Lymphocytes % (auto) 10.9 %; Monocytes # (auto) 1.01 K/uL (0.11-0.59); Monocytes % (auto) 11.8 %; Neutrophils # (auto) 6.54 K/uL (1.4-6.5); Neutrophils % (auto) 76.3 %
[2021-09-02 07:22] LABS: Albumin Globulin Ratio 1.4 (0.9-2); Albumin Level 3.4 gm/dl (3.4-5.0); BUN Creatinine Ratio 28.2 (10-20); Calcium 7.9 mg/dl (8.5-10.1); Creatinine Clr Calc Pharmacy 68.9 ml/min; Est GFR (African American) 90.7 ml/min; Est GFR (Non-African American) 78.2 ml/min; Globulin 2.5 gm/dl (2.5-4.0); Total Protein 5.9 gm/dl (6.0-8.3)
[2021-09-02] MEDS: FAMOTIDINE 20 MG in SYRINGE 3 ML IV SCH ×2 (08:36→20:44)
--- NOTE | 2021-09-02 08:59 | XRay Report ---
KUB HISTORY: Acute abdominal pain with reported small bowel obstruction eval sbo COMPARISON: KUB and CT abdomen and pelvis studies 09/01/2021 FINDINGS: Distal tip enteric tube projects over the gastric body. Unchanged small bowel obstruction. Calcified uterine fibroids. Contrast noted within the urinary bladder lumen. Moderate fecal retention of the right hemicolon. Cholecystectomy. No renal calculi. No ureteral calculi. No pneumoperitoneum or pneumatosis. Lumbar levoscoliosis. No fracture. IMPRESSION: 1. Distal tip of enteric tube projects over the stomach. 2. Persistent small bowel obstruction. ACT 112: Negative or not required by law. The above report was generated using voice recognition software. It may contain grammatical, syntax o r spelling errors. Electronically signed by: Andrea Redd M.D. 09/02/2021 8:58 AM
--- NOTE | 2021-09-02 09:08 | Hospitalist Progress Note ---
Date of Service September 02, 2021 Assessment & Plan (1) Small bowel obstruction: Plan: Surekha is a 86-year-old female recently discharged after a open incisional hernia repair with mesh 08/30/2021, and a history of anxiety, gallstones, GERD, hyperlipidemia, hypertension who presents with worsening nausea acutely worsened in the last day with recurrent vomiting since [address] scan indicative of small bowel obstruction. initial CTA/P: Small bowel obstruction, fluid collection suspicious for seroma has been n.p.o. status for bowel rest with NGT LIS (~95cc drainage since yesterday, 500cc cumulative) General surgery consulted-- appreciate assistance Patient with follow-up CT of the abdomen and pelvis today showing increased dilated loops of bowel with transition point near the abdominal wall hernia repair site likely secondary to adhesions Given follow-up CT findings, general surgery believes surgical reexploration warranted at this time (2) Leukocytosis: Plan: WBC count 12.42 upon presentation likely reactive from vomiting. Has since normalized (3) Hyperlipidemia: Plan: Resume simvastatin when able to take p.o. meds (4) GERD (gastroesophageal reflux disease): Plan: Resume PPI when able to take p.o. IV famotidine while n.p.o. (5) Obstructive apnea: Plan: CPAP nightly as needed (6) Incisional hernia, incarcerated: Plan: Post surgical repair (08/30/21), surgery consulted. Dressing C/D/I (7) Hypertension: Plan: Telmisartan held while n.p.o. Hydralazine IV every 6 hours as needed, resume p.o. meds when able If additional antihypertensive IV control needed consider moving to telemetry Plan: plan of care d/w Dr. Penny-- appreciate comanagement. Will D/W Dr. Nowak- Further orders as warranted. Admission and Anticipated Discharge Date Admission Date: September 01, 2021 Subjective Patient seen on daily rounds today. Biggest complaint remains to be the NG tube. Still having intermittent abdominal discomfort and nausea. Is having some flatus. No BM. KUB done this morning showing persistent SBO. CT of the abdomen and pelvis ordered by general surgery with concern for progressing obstruction. General surgery recommending reexploring surgically today. Review of Systems Review of Systems: All systems reviewed and are unremarkable except as noted in HPI and below Denies fevers, chills, headache, nasal congestion, sore throat, cough, chest pain, shortness of breath, palpitations, orthopnea, PND, diarrhea, constipation, dysuria, hematuria, frequency, back pain, joint pain or swelling, easy bruising or bleeding, skin lesions or rashes. Physical Exam Physical Exam: General: Sitting upright in her hospital bed. Appears unco mfortable given the NGT in place but does not appear ill or toxic HEENT: Head is AT/NC. Buccal mucosa is moist and pink Neck: No JVD. Negative hepatojugular reflex Cardiac: RRR without M/G/R Lungs: CTA without W/R/R Abdomen: Hypoactive BS in all quadrants. Abdomen is not distended and is soft. Currently NT throughout Extremities: No peripheral clubbing cyanosis or edema Neuro: A&O X4. Cranial nerves II through XII are grossly intact. No focal neuro deficits Skin: No obvious skin lesions or rashes Psych: Appropriate affect. Pleasant and cooperative Results & Data Results & Data ([facility]) Vital Signs (Past 12 Hours) Vital Signs Temp Pulse Resp BP Pulse Ox 09/02/21 07:01 36.9 C 59 L 18 146/78 H 95 09/01/21 22:47 36.8 C 60 19 126/76 95 Laboratory Results 09/02/21 05:55 09/02/21 05:55 Diagnostic Findings KUB: IMPRESSION: 1. Distal tip of enteric tube projects over the stomach. 2. Persistent small bowel obstruction. CT of the abdomen and pelvis: IMPRESSION: 1. Persistent small bowel obstruction with transition point within the anterior mid abdomen near the abdominal wall hernia repair site, likely secondary to underlying adhesions. The degree of small bowel distention is similar to slightly progressed. 2. Small volume of abdominopelvic ascites is new from prior. Small right and trace left pleural effusions. 3. Enteric tube terminates within the stomach. 4. Mild bibasilar densities suggest atelectasis. 5. Gas and fluid within the anterior abdominal wall at the hernia incision site is likely on a postoperative basis. 6. Additional findings as above. PG Care Time/CCT Total # of Minutes Spent Total Time Spent with Patient: Total time spent is greater than 50% in coordination of care (as documented) at patient's floor/unit and/or counseling patient: Coding Level of Care Code 14216 Subseq Hosp Care Lvl 3 Diagnoses Small bowel obstruction K56.609 Leukocytosis D72.829 Hyperlipidemia E78.5 GERD (gastroesophageal reflux disease) K21.9 Obstructive apnea G47.33 Incisional hernia, incarcerated K43.0 Hypertension I10
--- NOTE | 2021-09-02 09:23 | Surgery Progress Note ---
Date of Service September 02, 2021 Assessment & Plan (1) Small bowel obstruction: Plan: POD#3 open incisional hernia repair with mesh here w/ concern for SBO KUB this AM shows persistent SBO. NGT with 95cc documented over last 12 hours Remains with some abdominal pain and complaints of nausea. Has generalized discomfort to palpation, worse on R side + gas, no BM Will obtain a CT scan for further evaluation Pt seen/examined with Dr. 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 Patient clinically has more abdominal distention and more significant tenderness inferior and lateral to the umbilical area The lab was noted the white count is normal left shift persists CAT scan of the abdomen showed a clinical impression more abdominal distention in the small bowel in the transition point appears to be around the umbilical area where the hernia was repaired the CT scan finding was reviewed with the radiologist With this finding discussed with the patient recommended to go ahead and r eexplore Discussed with the patient that we will work around where the hernia was fixed and depending what we find we may need to remove the mesh and if I suspect that there is an infection we most likely cannot put the same type of mesh in her All question answered Permit signed medical service notified Surgery scheduled tentatively about 1:00 today Subjective Patient says she had ongoing nausea/pain overnight. Despite this she is asking desperately for something to drink as she is very thirsty. Is passing some flatus. No BM yet. Physical Exam Physical Exam: awake/alert Gastrointestinal (Abdomen): Inspection/Auscultation: + abdominal surgical incision (midline incision w/ steri-strips; no drainage) Percussion/Palpation: + abdomen tender (generalized ttp and more so along R side of abdomen) Results & Data ([facility]) Vital Signs (Past 12 Hours) Vital Signs Temp Pulse Resp BP Pulse Ox 09/02/21 07:01 36.9 C 59 L 18 146/78 H 95 09/01/21 22:47 36.8 C 60 19 126/76 95 PG Care Time/CCT Total # of Minutes Spent Total Time Spent with Patient: Total time spent is greater than 50% in coordination of care (as documented) at patient's floor/unit and/or counseling patient: Coding Level of Care Code None Diagnoses Small bowel obstruction K56.609
--- NOTE | 2021-09-02 10:04 | CT Scan Report ---
ABDOMEN AND PELVIS CT WITHOUT CONTRAST CT DOSE: 1370.95 mGy.cm HISTORY: Acute abdominal pain with abdominal distention status post hernia repair s/p incisional her eber repair, eval SBO TECHNIQUE: Multiaxial CT images of the abdomen and pelvis were performed without contrast. A dose lo wering technique was utilized adhering to the principles of ALARA. COMPARISON STUDY: CT abdomen and pelvis 09/01/2021 FINDINGS: Trace left and small right pleural effusions. Mild bibasilar consolidation. The unenhanced spleen, moderately atrophic pancreas, and adrenal glands are unremarkable. Cholecystectomy. Hepatic s teatosis. Mild nonspecific bilateral perinephric stranding. No hydronephrosis. Contrast is noted with in the urinary bladder. Numerous calcified uterine fibroids. Atherosclerosis of the aorta. No adenopa thy. Enteric tube terminates within the gastric body. Mild colonic diverticulosis. Small volume of abdomin al pelvic ascites. Moderate fecal retention of the right hemicolon. Noninflamed appendix. There are n umerous air and fluid-filled dilated loops of small bowel within the abdomen measuring up to 3.9 cm t ransversely, previously 3.6 cm. Transition a decompressed loops again noted along the anterior abdomi nal wall near the supraumbilical hernia repair. Gas and fluid within the anterior abdominal wall at t he hernia incision site redemonstrated with fluid measuring up to 5.7 cm transversely. Mild lumbar le voscoliosis. Degenerative changes of the spine, pelvis and hips. IMPRESSION: 1. Persistent small bowel obstruction with transition point within the anterior mid abdomen near the abdominal wall hernia repair site, likely secondary to underlying adhesions. The degree of small sally l distention is similar to slightly progressed. 2. Small volume of abdominopelvic ascites is new from prior. Small right and trace left pleural effus ions. 3. Enteric tube terminates within the stomach. 4. Mild bibasilar densities suggest atelectasis. 5. Gas and fluid within the anterior abdominal wall at the hernia incision site is likely on a postop erative basis. 6. Additional findings as above. ACT 112: Negative or not required by law. The above report was generated using voice recognition software. It may contain grammatical, syntax o r spelling errors. Electronically signed by: Andrea Redd M.D. 09/02/2021 10:03 AM
[2021-09-02] MEDS ORDERED: fentaNYL citrate 100 MCG/2 ML VIAL IV PRN (12:14)
[2021-09-02] MEDS ORDERED: ONDANSETRON INJ 2 MG/ML 2 ML VIAL IV PRN (12:14)
[2021-09-02] MEDS ORDERED: ATROPINE SULFATE 0.1 MG/ML 10ML SYR IV PRN (12:14)
[2021-09-02] MEDS ORDERED: LABETALOL HCL IV 5 MG/ML 20ML IV PRN (12:14)
[2021-09-02] MEDS ORDERED: HYDROmorphone INJ 1 MG/ML SYRINGE IV PRN (12:14)
[2021-09-02] MEDS ORDERED: MEPERIDINE HCL 25 MG/ML CARP/VIAL IV PRN (12:14)
[2021-09-02] MEDS ORDERED: PHENYLEPHRINE 100MCG/ML 5ML SYR IV PRN (12:14)
[2021-09-02] MEDS ORDERED: ePHEDrine sulfate 50 MG/ML AMP IV PRN (12:14)
--- NOTE | 2021-09-02 13:28 | Anesthesiology Consultation ---
Date of Service September 02, 2021 Assessment & Plan (1) Encounter for pre-operative examination: Chart Review Chart Review: Acceptable Risk for Surgery (necessary surgery) and Patient NOT seen in Pre Admission Testing Consults Requested none History Surgery Operation Date: 09/02/21 13:00 Proposed Procedures p Exploratory Laparotomy - Vikram Penny MD, FACS Height/Weight Height: 5 ft 3 in Weight: 106.5 kg Allergies Allergy/AdvReac Type Severity Reaction Status Date / Time nitrofurantoin AdvReac Mild Nausea/Vomi Unverified 09/01/21 07:52 [From Macrodantin] ting Sulfa (Sulfonamide AdvReac Unknown NAUSEA AND Verified 09/01/21 07:52 Antibiotics) VOMITING Medications Home Medications Medication Instructions Recorded Confirmed Last Taken lorazepam 1 mg tablet 1 mg PO DAILY PRN #10 tab 03/02/19 09/01/21 08/29/21 23:00 pantoprazole 40 mg tablet,delayed 40 mg PO QPM tab 03/02/19 09/01/21 08/31/21 release simvastatin 40 mg tablet 40 mg PO QPM tab 03/02/19 09/01/21 08/31/21 telmisartan 20 mg tablet 20 mg PO QPM tab 03/02/19 09/01/21 08/31/21 triamcinolone acetonide 0.1 % 1 applic TOPICAL DAILY PRN gm 03/02/19 09/01/21 08/29/21 22:00 topical cream cholecalciferol (vitamin D3) 25 1,000 unit PO QPM 03/25/19 09/01/21 08/29/21 19:00 mcg (1,000 unit) capsule (Vitamin D3) coQ10 (ubiquinol) 200 mg capsule 200 mg PO QPM 03/25/19 09/01/21 08/18/21 cyanocobalamin (vitamin B-12) 1,000 mcg PO QPM 03/25/19 09/01/21 08/29/21 19:00 1,000 mcg tablet (Vitamin B-12) ketoconazole 2 % topical cream 1 applic TOPICAL DAILY PRN 03/25/19 09/01/21 08/29/21 19:00 pseudoephedrine HCl 30 mg tablet 30 mg PO Q6H PRN 03/25/19 09/01/21 08/31/21 zolpidem 5 mg tablet 5 mg PO HS 03/25/19 09/01/21 08/31/21 CPAP Machine #1 ea 10/19/20 08/07/21 Unknown aspirin 81 mg tablet,delayed 81 mg PO 3XWK tab 11/21/20 09/01/21 08/22/21 release (Aspirin Low Dose) clobetasol 0.05 % topical ointment 1 applic TOP 2XWK #45 gm 12/05/20 09/01/21 08/29/21 21:00 CPAP Machine #1 ea 01/30/21 08/07/21 Unknown docusate sodium 100 mg capsule 100 mg PO TID #0 08/30/21 09/01/21 08/31/21 guaifenesin 600 mg tablet, 400 mg PO HS 08/30/21 09/01/21 08/31/21 extended release 12 hr (Mucinex) hydrocodone 5 mg-acetaminophen 325 1 - 2 tab PO Q4H PRN 09/01/21 09/01/21 08/31/21 mg tablet Active Medications Generic Name Dose Route Start Last Admin Trade Name Freq PRN Reason Stop Dose Admin Heparin Sodium (Porcine) 7,500 units 09/01/21 14:00 09/02/21 05:33 Heparin Sod 5,000 Unit/0.5 Ml Vial SQ 10/01/21 13:59 7,500 units Q8 EDUAR Administration Famotidine 20 mg/ Syringe 5 mls @ 2.5 mls/min 09/01/21 21:00 09/02/21 08:36 IV 10/01/21 20:59 2.5 mls/min BID EDUAR Administration Morphine Sulfate 2 mg 09/01/21 07:29 09/02/21 04:11 Morphine Sulfate 2 Mg/Ml Carp IV 09/15/21 07:28 2 mg Q4H PRN Administration Pain Ondansetron HCl 4 mg 09/01/21 09:57 09/02/21 05:34 Ondansetron Inj 2 Mg/Ml 2 Ml Vial IV 10/01/21 09:56 4 mg Q6H PRN Administration Nausea Phenol 2 sprays 09/01/21 11:01 09/01/21 12:20 Chloraseptic 1.4% Soln 180 Ml Btl MT 10/01/21 11:00 2 sprays Q4H PRN Administration sore throat NPO Date Last Intake of Fluids: 09/01/21 Time Last Intake of Fluids: 04:20 Date Last Intake of Solids: 09/01/21 Time Last Intake of Solids: 04:20 Past Medical History Medical History Cardiac murmur hx of as child Carotid stenosis <50% blockage to bilateral ICAs per 2019 carotid duplex GERD (gastroesophageal reflux disease) UNDER CONTROL Hiatal hernia S/P REPAIR History of basal cell carcinoma Hyperlipidemia Hypertension IBS (irritable bowel syndrome) Per records Mitral valve prolapse syndrome follows with Dr. Sanchez/ Miranda Only mild mitral annual calcification on 07/05/17 DSE- otherwise MV unremarkable Morbid obesity Skin cancer removed from several locations -BASAL CELL Sleep apnea CPAP Spinal stenosis Uterine fibroid Past Family History Family History Mother Acquired amyotrophic lateral sclerosis Father Lung cancer Father No problems noted. Brother Family history of diabetes mellitus Grandfather (Paternal) Family history of diabetes mellitus Past Surgical History Surgical History H/O colonoscopy H/O oral surgery tooth extractions History of adenoidectomy History of cardiac cath 1999= NO STENTS History of cholecystectomy HIATAL HERNIA REPAIR History of esophagogastroduodenoscopy (EGD) History of incisional hernia repair (08/30/21) Open Incisional Hernia Repair with Mesh - Michael Carranza, DO 08/30/2021 History of Mohs micrographic surgery for skin cancer Hx of dilation and curettage x2 Hx of lymph node biopsy right arm Hx of tonsillectomy Social History Smoking Status: Former smoker Hx Alcohol Use: Yes Alcohol type: wine alcohol intake frequency: 0-2 drinks per day Hx Substance Use: No substance use type: does not use Physical Exam Vital Signs Last Vital Signs Temp 36.9 C 09/02/21 07:01 Pulse 59 L 09/02/21 07:01 Resp 18 09/02/21 07:01 BP 146/78 H 09/02/21 07:01 Pulse Ox 95 09/02/21 07:01 Testing Laboratory Results 09/02/21 05:55 09/02/21 05:55 Urine Color Dark Yellow 09/01/21 21:30 Urine Appearance Clear (Clear) 09/01/21 21:30 Urine pH 5.5 (4.5-7.5) 09/01/21 21:30 Ur Specific [place] 1.039 (1.000-1.030) H 09/01/21 21:30 Urine Protein Trace (Negative) H 09/01/21 21:30 Urine Glucose (UA) Negative (Negative) 09/01/21 21:30 Urine Ketones 2+ (Negative) H 09/01/21 21:30 Urine Nitrite Negative (Negative) 09/01/21 21:30 Ur Leukocyte Esterase Negative (Negative) 09/01/21 21:30 Urine WBC (Auto) 1-5 /hpf (0-5) 09/01/21 21:30 Urine RBC (Auto) 0-4 /hpf (0-4) 09/01/21 21:30 U Hyaline Cast (Auto) 5-10 /lpf (0-5) H 09/01/21 21:30 U Epithel Cells (Auto) >30 /lpf (0-5) H 09/01/21 21:30 Urine Bacteria (Auto) Negative (Negative) 09/01/21 21:30 Electrocardiogram Date: 09/01/21 DICTATED BY:Ranjan Rodríguez MD Test Reason : Blood Pressure : / mmHG Vent. Rate : 063 BPM Atrial Rate : 063 BPM P-R Int : 202 ms QRS Dur : 096 ms QT Int : 438 ms P-R-T Axes : 039 -40 042 degrees QTc Int : 448 ms Normal sinus rhythm Left anterior fascicular block Low voltage QRS Incomplete right bundle branch block Poor R wave progression, consider anterior TN vs. lead placement vs. LVH Abnormal ECG When compared with ECG of 14-APR-2019 16:32, No significant change Confirmed by Ranjan Rodríguez ([id number]) on 09/01/2021 8:24:53 AM Referred By: REFERRED SELF Confirmed By:Ranjan Rodríguez Signed By: Other Testing ABDOMEN AND PELVIS CT WITHOUT CONTRAST CT DOSE: 1370.95 mGy.cm HISTORY: Acute abdominal pain with abdominal distention status post hernia repair s/p incisional hernia repair, eval SBO TECHNIQUE: Multiaxial CT images of the abdomen and pelvis were performed without contrast. A dose lowering technique was utilized adhering to the principles of ALARA. COMPARISON STUDY: CT abdomen and pelvis 09/01/2021 FINDINGS: Trace left and small right pleural effusions. Mild bibasilar consolidation. The unenhanced spleen, moderately atrophic pancreas, and adrenal glands are unremarkable. Cholecystectomy. Hepatic steatosis. Mild nonspecific bilateral perinephric stranding. No hydronephrosis. Contrast is noted within the urinary bladder. Numerous calcified uterine fibroids. Atherosclerosis of the aorta. No adenopathy. Enteric tube terminates within the gastric body. Mild colonic diverticulosis. Small volume of abdominal pelvic ascites. Moderate fecal retention of the right hemicolon. Noninflamed appendix. There are numerous air and fluid-filled dilated loops of small bowel within the abdomen measuring up to 3.9 cm transversely, previously 3.6 cm. Transition a decompressed loops again noted along the anterior abdominal wall near the supraumbilical hernia repair. Gas and fluid within the anterior abdominal wall at the hernia incision site redemonstrated with fluid measuring up to 5.7 cm transversely. Mild lumbar levoscoliosis. Degenerative changes of the spine, pelvis and hips. IMPRESSION: 1. Persistent small bowel obstruction with transition point within the anterior mid abdomen near the abdominal wall hernia repair site, likely secondary to underlying adhesions. The degree of small bowel distention is similar to slightly progressed. 2. Small volume of abdominopelvic ascites is new from prior. Small right and trace left pleural effusions. 3. Enteric tube terminates within the stomach. 4. Mild bibasilar densities suggest atelectasis. 5. Gas and fluid within the anterior abdominal wall at the hernia incision site is likely on a postoperative basis. 6. Additional findings as above. ACT 112: Negative or not required by law. The above report was generated using voice recognition software. It may contain grammatical, syntax or spelling errors. Electronically signed by: Andrea Redd M.D. 09/02/2021 10:03 AM Dictated:09/02/2145 Transcribed: 09/02/2145
[2021-09-02] MEDS ORDERED: LIDOCAINE 2% 2 ML VIAL/AMP(20MG/ML) INFIL ONE (13:45)
[2021-09-02] MEDS ORDERED: PROPOFOL IV EMULSION 10 MG/ML 20 ML VIAL IV ONE (13:45)
[2021-09-02] MEDS ORDERED: ONDANSETRON INJ 2 MG/ML 2 ML VIAL ONE (13:45)
[2021-09-02] MEDS ORDERED: fentaNYL citrate 100 MCG/2 ML VIAL ONE ×2 (13:45→14:37)
[2021-09-02] MEDS ORDERED: DEXAMETHASONE SOD INJ 4 MG/ML VIAL ONE (13:45)
[2021-09-02] MEDS ORDERED: BUPIVACAINE 0.5 % 5 MG/1 ML MPF 30ML VIAL ONE (13:48)
[2021-09-02] MEDS ORDERED: GLYCOPYRROLATE 0.2 MG/ML VIAL ONE (14:32)
[2021-09-02] MEDS ORDERED: ePHEDrine sulfate 50 MG/ML SYR ONE (14:32)
[2021-09-02] MEDS ORDERED: ROCURONIUM BROMIDE 10 MG/ML 5 ML VIAL IV ONE (14:32)
[2021-09-02] MEDS ORDERED: SUCCINYLCHOLINE CHLORIDE 20 MG/ML 10 ML VIAL IV ONE (14:32)
[2021-09-02] MEDS ORDERED: NEOSTIGMINE METHYLSULFATE 1 MG/ML 10ML VIAL ONE (14:32)
[2021-09-02] MEDS ORDERED: cefOXitin 2,000 MG/60 ML BAG IV ONE (14:40)
--- NOTE | 2021-09-02 15:59 | Post Operative Brief Note ---
PG Immediate Post Op with CF Date of Surgery September 02, 2021 Pre & Post Diagnosis Operation Date: 09/02/21 13:00 Pre-Op Diagnosis: Small bowel obstruction Post-Op Diagnosis: Small bowel adhesion I identified the patient and participated in the time-out.: Yes Procedure Operation Date: 09/02/21 13:00 Actual Procedures p Exploratory Laparotomy, Explant Previous Abdominal Mesh, Abdominal Wall Closure with Compartment Seperation and Vicryl Mesh(Not Applicable) - Vikram Penny MD, FACS release small bowel adhesion Surgeon Vikram Penny MD, FACS Portable Machine Sander alan olson Estimated Blood Loss 40 Findings Consistent with Post-Op Diagnosis Specimens Specimen Description: Culture#1: Abdominal Wall Fluid Culture #2: Urine Culture A. Abdominal Mesh Drains Amato Catheter and Jeramy-Lomas Drain (19fr gertrude)
[2021-09-02] MEDS ORDERED: KETOROLAC 30 MG/ML VIAL IV ONE (16:19)
--- NOTE | 2021-09-02 16:19 | Operative Report ---
Post Operative Report Pre & Post Diagnosis Operation Date: 09/02/21 13:00 Pre-Op Diagnosis: Small bowel obstruction Post-Op Diagnosis: Small bowel adhesion I identified the patient and participated in the time-out.: Yes Procedure Operation Date: 09/02/21 13:00 Actual Procedures p Exploratory Laparotomy, Explant Previous Abdominal Mesh, Abdominal Wall Clos ure with Compartment Seperation and Vicryl Mesh(Not Applicable) - Vikram Penny MD, FACS The patient was brought into the operating theater general endotracheal anesthesia supine position Amato catheter been inserted systemic antibiotics on board a timeout was had patient was identified we we had removed the Steri- Strips prior to prepping and the supraumbilical linear incision was free of any irritation or any drainage we opened it with a knife and medially went into subcutaneous tissue appreciated a moderate amount of bloody seromatous type of fluid which we cultured once we opened the cavity we can see and visualize the mesh in the depth of cavity the opening in the mesh that we could see with probably about 3 to 4 cm at most circumferentially we could see some of the Ethibond suture button inferior aspect few of the sutures were loose. We at this point elevated the mesh and as we elevated it we could see a loop of bowel strictly adherent to the undersurface of the Ventralex mesh the area that was read as obstruction by CAT scan we then freed this without entering the bowel and actually on the bowel wall you could see the indentation of the mesh like a fibrous exudate we then surfer eventually remove the other Ethibond suture and explanted the mesh once we had completed this we were left at the cavity and the abdominal wall opening I wanted to make sure that there was no other adhesion causing the bowel obstruction therefore we enlarged the incision and the abdominal wall opening cephalad and down to the umbilical area and entered the peritoneal cavity where the small bowel was dilated proximal to the area of obstruction we then were able to go from the ligament of Treitz down to that area we saw the small bowel few areas that abdomen linear bluish striation typically possibly from the distention that she had but certainly there was no ischemia no evidence of vascular compromise the worst are 2 separate areas on the small bowel but nothing extensive and we continue to down to the area where we had removed the mesh from the small bowel freed up that indentation of mesh of the small bowel peel that off the small bowel and then continue to explore all the way to the second no other evidence of obstruction there was some peritoneal fluid but it was not not bloody once we had completed this then we were left with the opening in the abdominal wall which by this time as we had opened it was approximately 8 cm or so I elected to free up the peritoneum underneath the opening which we did circumferentially and closed the peritoneum with 2-0 chromic suture and the abdominal wall itself the edges of the hernial sac I left intact rushed up a few areas making sure we had removed all the mesh that I closed the edges of the hernial sac with interrupted #1 PDS suture this point I did a separation of the anterior rectus sheath on both sides the release some pressure on the closure and then at the edges of the release of the rectus sheath laterally we sutured a Vicryl mesh circumferentially with 0 PDS given more support to the abdominal wall closure the area was checked hemostasis appear satisfactory we then placed a Jesu drain the right lower quadrant wound into the cavity attaching skin edge with 2-0 silk we then closed the subcutaneous tissue reapproximated the umbilical crater down to the abdominal wall onto the mesh and edges of the fascia and continued on subcutaneous fashion to reapproximate the skin edges and use jose d for skin edges dressing was applied procedure was tolerated well by the patient prior to leaving the room we had placed some 0.5% Marcaine and getting it through the Jesu drain and left in the wound until she was ready to leave the room and then reestablished suction on the Jesu drain The procedure was tolerated well by the patient estimate blood loss 40 cc Addendum Radha Vick physician financial legal assistant was present throughout the procedure and helped the retraction exposure and wound closure Tried calling Isacc Mcgowan her son per patient request at [phone] no answer Surgeon Vikram Penny MD, FACS Inspector Circuitry Negative alan olson Estimated Blood Loss 40 Findings Consistent with Post-Op Diagnosis Loop of small bowel adhered to the surgery mesh causing obstruction Specimens Culture for aerobes and anaerobes Drains 19 Jesu drain in subcutaneous tissue Description of Procedure merda I attest to the content of the Intraoperative Record and any orders documented therein. Any exceptions are noted below.
[2021-09-02] MEDS ORDERED: ACETAMINOPHEN 1,000 MG/100 ML VIAL IV STA (16:20)
[2021-09-02] MEDS ORDERED: KETOROLAC 30 MG/ML VIAL ONE (16:29)
[2021-09-02] MEDS ORDERED: ACETAMINOPHEN 1000 MG/100 ML IV IV ONE ×2 (16:29)
--- NOTE | 2021-09-02 17:07 | Anesthesiology Progress Note ---
Date of Service September 02, 2021 Anesthesia Post Procedure Vital Signs Vital Signs: Temp Pulse Pulse Resp BP BP Pulse Ox 09/02/21 17:05 36.4 C L 64 20 122/66 93 09/02/21 16:55 59 L 12 124/55 L 91 09/02/21 16:45 62 18 135/67 92 09/02/21 16:35 58 L 19 137/63 93 09/02/21 16:25 59 L 20 140/64 93 09/02/21 16:15 36.2 C L 64 16 144/70 H 96 09/02/21 07:01 36.9 C 59 L 18 146/78 H 95 09/01/21 22:47 36.8 C 60 19 126/76 95 Pain Intensity Abdomen: Pain Intensity: 3 Transfer of Care Handoff Completed per policy Notes Mental Status: alert / awake / arousable Patient Amnestic to Procedure: Yes Nausea / Vomiting: adequately controlled Pain: adequately controlled Airway Patency, RR, SpO2: stable & adequate BP & HR: stable & adequate Hydration State: stable & adequate Anesthetic Complications: no major complications apparent and Pt Satisfied with anesthetic care Notes: The patient is awake and comfortable. Her SpO2 is 90 to 92 on room air. The patient does have a history of sleep apnea. She has been given an incentive spirometer to use. I spoke to Yakelin Bhatia from medicine who stated that the patient required oxygen overnight as well due to not being able to use her CPAP because of the NG tube. The patient will go to the floor with oxygen as necessary. She will have continuous pulse oximetry. The medicine team will follow her.
[2021-09-02] MEDS ORDERED: MoRPHine SULFATE 2 MG/ML CARP IV PRN (17:41)
[2021-09-03] MEDS ORDERED: ACETAMINOPHEN 1000 MG/100 ML IV IV PRN
[2021-09-03] MEDS: ONDANSETRON INJ 2 MG/ML 2 ML VIAL IV PRN (03:01)
[2021-09-03] MEDS: HEPARIN SOD 5,000 UNIT/0.5 ML VIAL SQ SCH ×3 (05:41→20:35)
[2021-09-03] MEDS: MoRPHine SULFATE 4 MG/ML 1 ML CARP\\VIAL IV PRN ×2 (05:52→08:56)
--- NOTE | 2021-09-03 06:59 | Surgery Progress Note ---
Date of Service September 03, 2021 Assessment & Plan (1) Small bowel obstruction: Plan: POD#1 status post explant supraumbilical hernia mesh with release of bowel obstruction and closure abdominal wall with compartment separation and Vicryl mesh Operative findings were discussed with the patient and I talk with her son yesterday after surgery We will leave the NG tube in for today likely may be able to remove it tomorrow The patient would like some water sips and some zhanna reji and we wrote for that Continue with heparin subcu for DVT prophylaxis POD#3 open incisional hernia repair with mesh here w/ concern for SBO KUB this AM shows persistent SBO. NGT with 95cc documented over last 12 hours Remains with some abdominal pain and complaints of nausea. Has generalized discomfort to palpation, worse on R side + gas, no BM Will obtain a CT scan for further evaluation Pt seen/examined with Dr. Penny Admission and Anticipated Discharge Date Admission Date: September 01, 2021 Subjective States feel better than yesterday less abdominal discomfort thirsty would like some water or some sips of zhanna reji Physical Exam Physical Exam: Alert coherent resting comfortable in bed NG tube in place with moderate amount of drainage appreciated in the canister Oral mucosa bit dry The abdomen is distended as expected postoperatively less tender than yesterday the dressing on the incision is dry Results & Data ([facility]) Vital Signs (Past 12 Hours) Vital Signs Temp Pulse Pulse Resp BP Pulse Ox 09/03/21 02:37 36.5 C 65 18 137/77 94 09/02/21 22:00 36.5 C 73 20 118/64 92 09/02/21 20:28 36.4 C L 58 L 18 109/66 94 09/02/21 19:22 36.5 C 65 18 111/66 92 PG Care Time/CCT Total # of Minutes Spent Total Time Spent with Patient: Total time spent is greater than 50% in coordination of care (as documented) at patient's floor/unit and/or counseling patient: Coding Level of Care Code None Diagnoses Small bowel obstruction K56.609
--- NOTE | 2021-09-03 07:17 | Hospitalist Progress Note ---
Date of Service September 03, 2021 Assessment & Plan (1) Small bowel obstruction: Plan: Surekha is a 86-year-old female recently discharged after a open incisional hernia repair with mesh 08/30/2021, and a history of anxiety, gallstones, GERD, hyperlipidemia, hypertension who presents with worsening nausea acutely worsened in the last day with recurrent vomiting since [address] scan indicative of small bowel obstruction. initial CTA/P: Small bowel obstruction, fluid collection suspicious for seroma had been n.p.o. status for bowel rest with NGT LIS General surgery consulted-- appreciate comanagement despite development of flatus, patient with persistent pain leading to CT of the A/P done 09/04 showing increased dilated loops of bowel with transition point near the abdominal wall hernia repair site likely secondary to adhesions Given follow-up CT findings, general surgery believed surgical reexploration warranted at this time-- she is now POD#1 s/p Ex Lap with explantation of abdominal mesh and release of SBO - NGT in place. + abd pain, no flatus. NGT gastric OP 570 (but ordered clears and zhanna reji by general surgery) - D/W patient regarding the importance of ambulation to help return bowel function to normal and NGT removal. She verbalized that "per surgeon, to stay in bed today". - at any rate, oral intake mgmt per general surgery. appreciate assistance. (2) Leukocytosis: Plan: WBC count 12.42 upon presentation likely reactive from vomiting. Has since normalized (3) Hyperlipidemia: Plan: Resume simvastatin when able to take p.o. meds (4) GERD (gastroesophageal reflux disease): Plan: Resume PPI when able to take p.o. IV famotidine while n.p.o. (5) Obstructive apnea: Plan: noctural O2 for now. Once NGT removed, can transition back to CPAP (6) Incisional hernia, incarcerated: Plan: Post surgical repair (08/30/21), surgery on board. Dressing C/D/I (7) Hypertension: Plan: Telmisartan held while n.p.o. Hydralazine IV every 6 hours as needed, resume p.o. meds when able If additional antihypertensive IV control needed consider moving to telemetry Plan: plan of care d/w Dr. Penny-- appreciate comanagement. Will D/W Dr. Nowak- Further orders as warranted. Admission and Anticipated Discharge Date Admission Date: September 01, 2021 Subjective Patient seen on daily rounds today. Does report some mild abdominal discomfort but improved compared to yesterday. Not having any nausea. Denies flatus since procedure yesterday. No BM. Has been seen by general surgery this morning who recommends continuation of NGT with possible oral. Surgery did order for sips of clears and some zhanna reji. Per patient, she reports surgery did not want her out of bed today. Review of Systems Review of Systems: All systems reviewed and are unremarkable except as noted in HPI and below Denies fevers, chills, headache, nasal congestion, sore throat, cough, chest pain, shortness of breath, palpitations, orthopnea, PND, diarrhea, constipation, dysuria, hematuria, frequency, back pain, joint pain or swelling, easy bruising or bleeding, skin lesions or rashes. Physical Exam Physical Exam: General: Sitting upright in her hospital bed. Appears uncomfortable given the NGT in place but does not appear ill or toxic HEENT: Head is AT/NC. Buccal mucosa is moist and pink Neck: No JVD. Negative hepatojugular reflex Cardiac: RRR without M/G/R Lungs: CTA without W/R/R Abdomen: Hypoactive BS in all quadrants. Abdomen is not distended and is soft. surgical dressing dry and intact. tender in the lower quadrants. Extremities: No peripheral clubbing cyanosis or edema Neuro: A&O X4. Cranial nerves II through XII are grossly intact. No focal neuro deficits Skin: No obvious skin lesions or rashes Psych: Appropriate affect. Pleasant and cooperative Results & Data Results & Data ([facility]) Vital Signs (Past 12 Hours) Vital Signs Temp Pulse Pulse Resp BP Pulse Ox 09/03/21 02:37 36.5 C 65 18 137/77 94 09/02/21 22:00 36.5 C 73 20 118/64 92 09/02/21 20:28 36.4 C L 58 L 18 109/66 94 09/02/21 19:22 36.5 C 65 18 111/66 92 Laboratory Results 09/03/21 07:25 09/03/21 07:25 PG Care Time/CCT Total # of Minutes Spent Total Time Spent with Patient: Total time spent is greater than 50% in coordination of care (as documented) at patient's floor/unit and/or counseling patient: Coding Level of Care Code 88379 Subseq Hosp Care Lvl 2 Diagnoses Small bowel obstruction K56.609 Leukocytosis D72.829 Hyperlipidemia E78.5 GERD (gastroesophageal reflux disease) K21.9 Obstructive apnea G47.33 Incisional hernia, incarcerated K43.0 Hypertension I10
[2021-09-03 07:40] LABS: Basophils # (auto) 0.03 K/uL (0-0.2); Basophils % (auto) 0.6 %; Eosinophils # (auto) 0.21 K/uL (0-0.5); Eosinophils % (auto) 3.9 %; Hematocrit (blood only) 42.7 % (37-47); Hemoglobin 14.3 g/dL (12.0-16.0); Immature Granulocytes # (auto) 0.01 K/uL (0.00-0.02); Immature Granulocytes % (auto) 0.2 %; Lymphocytes # (auto) 0.89 K/uL (1.2-3.4); Lymphocytes % (auto) 16.6 %; Mean Corpuscular Hemoglobin 30.6 pg (25-34); Mean Corpuscular Volume 91.4 fL (80-100); Mean Platelet Volume 9.3 fL (7.4-10.4); Monocytes % (auto) 14.9 %; Neutrophils # (auto) 3.43 K/uL (1.4-6.5); Neutrophils % (auto) 63.8 %; Platelet Count 254 K/uL (130-400); Red Blood Count 4.67 M/uL (4.2-5.4); White Blood Count 5.37 K/uL (4.8-10.8)
[2021-09-03 07:52] LABS: Mean Corpuscular Hgb Conc 33.5 g/dL (32-36)
[2021-09-03 08:13] LABS: BUN Creatinine Ratio 36.4 (10-20); Calcium 7.7 mg/dl (8.5-10.1); Creatinine Clr Calc Pharmacy 63.6 ml/min; Est GFR (African American) 82.2 ml/min; Est GFR (Non-African American) 70.9 ml/min; Potassium 4.1 mmol/L (3.5-5.1)
[2021-09-03] MEDS: FAMOTIDINE 20 MG in SYRINGE 3 ML IV SCH ×2 (08:56→20:35)
[2021-09-03] MEDS: LACTATED RINGER'S 1,000 ML IV SCH ×3 (08:56→23:39)
[2021-09-04] MEDS: HEPARIN SOD 5,000 UNIT/0.5 ML VIAL SQ SCH ×3 (05:48→21:35)
--- NOTE | 2021-09-04 07:05 | Surgery Progress Note ---
Date of Service September 04, 2021 Assessment & Plan (1) Small bowel obstruction: Plan: POD#2 Overall she is making good progress regarding the issues at hand later on today we will remove the Jesu drain and leave the NG tube in for today get her up moving around more may DC the Amato catheter when up and around POD#1 status post explant supraumbilical hernia mesh with release of bowel obstruction and closure abdominal wall with compartment separation and Vicryl mesh Operative findings were discussed with the patient and I talk with her son yesterday after surgery We will leave the NG tube in for today likely may be able to remove it tomorrow The patient would like some water sips and some zhanna reji and we wrote for that Continue with heparin subcu for DVT prophylaxis POD#3 open incisional hernia repair with mesh here w/ concern for SBO KUB this AM shows persistent SBO. NGT with 95cc documented over last 12 hours Remains with some abdominal pain and complaints of nausea. Has generalized discomfort to palpation, worse on R side + gas, no BM Will obtain a CT scan for further evaluation Pt seen/examined with Dr. Penny Admission and Anticipated Discharge Date Admission Date: September 01, 2021 Subjective This morning still little bit anxious stating her bed sheets and covers are bothering her there folding a lot on her chest showed a lot of anxiety regarding this issue He denies any significant abdominal pain she was up yesterday she would like to have her NG tube removed Physical Exam Physical Exam: Is alert coherent as stated the anxious Oropharyngeal area moist although she states that the NG tube is bothering her NG drainage is dark bilious and amount noted to be decreasing from the day before The abdomen is prominent but nontender the abdominal dressings intact the Jesu drainage serous slightly sanguinous Results & Data ([facility]) Vital Signs (Past 12 Hours) Vital Signs Temp Pulse Resp BP Pulse Ox 09/03/21 23:56 37.2 C 68 16 128/74 94 PG Care Time/CCT Total # of Minutes Spent Total Time Spent with Patient: Total time spent is greater than 50% in coordination of care (as documented) at patient's floor/unit and/or counseling patient: Coding Level of Care Code None Diagnoses Small bowel obstruction K56.609
[2021-09-04] MEDS: LACTATED RINGER'S 1,000 ML IV SCH ×3 (07:51→22:27)
[2021-09-04] MEDS: FAMOTIDINE 20 MG in SYRINGE 3 ML IV SCH ×2 (07:54→21:33)
[2021-09-04 08:11] LABS: Basophils # (auto) 0.02 K/uL (0-0.2); Basophils % (auto) 0.3 %; Eosinophils # (auto) 0.28 K/uL (0-0.5); Eosinophils % (auto) 3.9 %; Hematocrit (blood only) 38.6 % (37-47); Hemoglobin 12.9 g/dL (12.0-16.0); Immature Granulocytes # (auto) 0.02 K/uL (0.00-0.02); Immature Granulocytes % (auto) 0.3 %; Lymphocytes # (auto) 1.19 K/uL (1.2-3.4); Lymphocytes % (auto) 16.4 %; Mean Corpuscular Hemoglobin 30.2 pg (25-34); Mean Corpuscular Volume 90.4 fL (80-100); Mean Platelet Volume 9.1 fL (7.4-10.4); Monocytes # (auto) 0.89 K/uL (0.11-0.59); Monocytes % (auto) 12.2 %; Neutrophils # (auto) 4.87 K/uL (1.4-6.5); Neutrophils % (auto) 66.9 %; Platelet Count 245 K/uL (130-400); RDW Coefficient of Variation 12.8 % (11.5-14.5); RDW Standard Deviation 42.7 fL (36.4-46.3); Red Blood Count 4.27 M/uL (4.2-5.4); White Blood Count 7.27 K/uL (4.8-10.8)
[2021-09-04 08:15] LABS: Mean Corpuscular Hgb Conc 33.4 g/dL (32-36)
[2021-09-04 08:32] LABS: BUN Creatinine Ratio 35.9 (10-20); Calcium 7.7 mg/dl (8.5-10.1); Creatinine Clr Calc Pharmacy 76.5 ml/min; Est GFR (Non-African American) 81.9 ml/min; Potassium 3.8 mmol/L (3.5-5.1)
--- NOTE | 2021-09-04 13:42 | Hospitalist Progress Note ---
Date of Service September 04, 2021 Assessment & Plan (1) Small bowel obstruction: Plan: Surekha is a 86-year-old female recently discharged after a open incisional hernia repair with mesh 08/30/2021, and a history of anxiety, gallstones, GERD, hyperlipidemia, hypertension who presents with worsening nausea acutely worsened in the last day with recurrent vomiting since [address] scan indicative of small bowel obstruction. initial CTA/P: Small bowel obstruction, fluid collection suspicious for seroma had been n.p.o. status for bowel rest with NGT LIS General surgery consulted-- appreciate comanagement despite development of flatus, patient with persistent pain leading to CT of the A/P done 09/04 showing increased dilated loops of bowel with transition point near the abdominal wall hernia repair site likely secondary to adhesions Given follow-up CT findings, general surgery believed surgical reexploration warranted-- is now s/p Ex Lap with explantation of abdominal mesh and release of SBO (done 09/02 Dr. Penny) - NGT in place. - abd pain, no flatus. NGT gastric OP 570 (but ordered clears and zhanna reji by general surgery?) - D/W patient regarding the importance of ambulation to help return bowel function to normal and NGT removal. She voices understanding - oral intake mgmt per general surgery. appreciate assistance. (2) Leukocytosis: Plan: WBC count 12.42 upon presentation likely reactive from vomiting. Has since normalized (3) Hyperlipidemia: Plan: Resume simvastatin when able to take p.o. meds (4) GERD (gastroesophageal reflux disease): Plan: Resume PPI when able to take p.o. IV famotidine while n.p.o. (5) Obstructive apnea: Plan: noctural O2 for now. Once NGT removed, can transition back to CPAP (6) Incisional hernia, incarcerated: Plan: Post surgical repair (08/30/21), surgery on board. Dressing C/D/I (7) Hypertension: Plan: Telmisartan held while n.p.o. Hydralazine IV every 6 hours as needed, resume p.o. meds when able Plan: plan of care to be d/w Dr. Sanders-- Further orders as warranted. Admission and Anticipated Discharge Date Admission Date: September 01, 2021 Subjective Patient seen on daily rounds today. Reports that she did not sleep well last night. Extremely fatigued and unmotivated today. Encouraged by general surgery to get up and out of bed but reports "this is the last thing I want to do". Denies any flatus. Her abdominal pain is however improving. No nausea. Review of Systems Review of Systems: All systems reviewed and are unremarkable except as noted in HPI and below Denies fevers, chills, headache, nasal congestion, sore throat, cough, chest pain, shortness of breath, palpitations, orthopnea, PND, diarrhea, constipation, dysuria, hematuria, frequency, back pain, joint pain or swelling, easy bruising or bleeding, skin lesions or rashes. Physical Exam Physical Exam: General: Sitting upright in her hospital bed. Appears uncomfortable given the NGT in place but does not appear ill or toxic HEENT: Head is AT/NC. Buccal mucosa is moist and pink Neck: No JVD. Negative hepatojugular reflex Cardiac: RRR without M/G/R Lungs: CTA without W/R/R Abdomen: Hypoactive BS in all quadrants. Abdomen is not distended and is soft. surgical dressing dry and intact. tender in the LLQ and RUQ Extremities: No peripheral clubbing cyanosis or edema Neuro: A&O X4. Cranial nerves II through XII are grossly intact. No focal neuro deficits Skin: No obvious skin lesions or rashes Psych: Appropriate affect. Pleasant and cooperative Results & Data Results & Data ([facility]) Vital Signs (Past 12 Hours) Vital Signs Temp Pulse Resp BP Pulse Ox 09/04/21 07:54 36.8 C 62 19 132/67 95 Laboratory Results 09/04/21 07:50 09/04/21 07:50 PG Care Time/CCT Total # of Minutes Spent Total Time Spent with Patient: Total time spent is greater than 50% in coordination of care (as documented) at patient's floor/unit and/or counseling patient: Coding Level of Care Code 51720 Subseq Hosp Care Lvl 2 Diagnoses Small bowel obstruction K56.609 Leukocytosis D72.829 Hyperlipidemia E78.5 GERD (gastroesophageal reflux disease) K21.9 Obstructive apnea G47.33 Incisional hernia, incarcerated K43.0 Hypertension I10
[2021-09-04] MEDS: ONDANSETRON INJ 2 MG/ML 2 ML VIAL IV PRN ×2 (18:30→20:49)
[2021-09-05] MEDS: HEPARIN SOD 5,000 UNIT/0.5 ML VIAL SQ SCH ×3 (05:18→19:54)
[2021-09-05] MEDS: ONDANSETRON INJ 2 MG/ML 2 ML VIAL IV PRN ×3 (05:34→23:32)
--- NOTE | 2021-09-05 07:01 | Surgery Progress Note ---
Date of Service September 05, 2021 Assessment & Plan (1) Small bowel obstruction: Plan: POD#3 At this point we will remove the NG tube and started on clear liquids hopefully that will help with her sinus drainage and throat discomfort Anticipate she may be in a hospital another 24 hours or so making sure that her GI function returns before discharge All question answered POD#2 Overall she is making good progress regarding the issues at hand later on today we will remove the Jesu drain and leave the NG tube in for today get her up moving around more may DC the Amato catheter when up and around POD#1 status post explant supraumbilical hernia mesh with release of bowel obstruction and closure abdominal wall with compartment separation and Vicryl mesh Operative findings were discussed with the patient and I talk with her son yesterday after surgery We will leave the NG tube in for today likely may be able to remove it tomorrow The patient would like some water sips and some zhanna reji and we wrote for that Continue with heparin subcu for DVT prophylaxis POD#3 open incisional hernia repair with mesh here w/ concern for SBO KUB this AM shows persistent SBO. NGT with 95cc documented over last 12 hours Remains with some abdominal pain and complaints of nausea. Has generalized discomfort to palpation, worse on R side + gas, no BM Will obtain a CT scan for further evaluation Pt seen/examined with Dr. Penny Admission and Anticipated Discharge Date Admission Date: September 01, 2021 Subjective Main complaint is that she has irritation in her throat some drainage likely from sinuses Stating passing flatus no real abdominal discomfort She is voiding fine and been out of bed Physical Exam Physical Exam: Comfortable alert laying in bed without any acute issues except bothered by the NG tube The abdominal incision free of any drainage or erythema drain been removed yesterday The abdomen is benign prominent as preoperatively or natural habitus NG drainage minimal dark green Results & Data ([facility]) Vital Signs (Past 12 Hours) Vital Signs Temp Pulse Resp BP Pulse Ox 09/04/21 21:44 36.8 C 62 18 157/86 H 95 PG Care Time/CCT Total # of Minutes Spent Total Time Spent with Patient: Total time spent is greater than 50% in coordination of care (as documented) at patient's floor/unit and/or counseling patient: Coding Level of Care Code None Diagnoses Small bowel obstruction K56.609
[2021-09-05] MEDS ORDERED: oxyCODONE/ACETAMINOPHEN 5mg/325mg TAB PO PRN (07:02)
[2021-09-05] MEDS: LACTATED RINGER'S 1,000 ML IV SCH ×2 (08:23→22:21)
[2021-09-05] MEDS: FAMOTIDINE 20 MG in SYRINGE 3 ML IV SCH ×2 (08:28→19:54)
[2021-09-05 08:35] LABS: Basophils # (auto) 0.02 K/uL (0-0.2); Basophils % (auto) 0.2 %; Eosinophils # (auto) 0.21 K/uL (0-0.5); Eosinophils % (auto) 2.5 %; Hematocrit (blood only) 38.1 % (37-47); Hemoglobin 13.3 g/dL (12.0-16.0); Immature Granulocytes # (auto) 0.05 K/uL (0.00-0.02); Immature Granulocytes % (auto) 0.6 %; Lymphocytes # (auto) 1.28 K/uL (1.2-3.4); Lymphocytes % (auto) 15.3 %; Mean Corpuscular Hemoglobin 31.1 pg (25-34); Mean Corpuscular Hgb Conc 34.9 g/dL (32-36); Mean Corpuscular Volume 89.2 fL (80-100); Mean Platelet Volume 9.1 fL (7.4-10.4); Monocytes # (auto) 0.82 K/uL (0.11-0.59); Monocytes % (auto) 9.8 %; Neutrophils # (auto) 5.96 K/uL (1.4-6.5); Neutrophils % (auto) 71.6 %; Platelet Count 255 K/uL (130-400); RDW Coefficient of Variation 12.4 % (11.5-14.5); Red Blood Count 4.27 M/uL (4.2-5.4); White Blood Count 8.34 K/uL (4.8-10.8)
[2021-09-05 08:44] LABS: Anion Gap 6 (3-11); BUN Creatinine Ratio 34.5 (10-20); Blood Urea Nitrogen 20 mg/dl (6-23); Carbon Dioxide 29 mmol/L (21-32); Chloride 102 mmol/L (98-107); Creatinine Clr Calc Pharmacy 84.4 ml/min; Est GFR (African American) 98.1 ml/min; Est GFR (Non-African American) 84.6 ml/min; Glucose 90 mg/dl (70-99(Fasting)); Sodium 137 mmol/L (136-145)
--- NOTE | 2021-09-05 11:52 | XRay Report ---
XR KUB/Abdomen 1 view CLINICAL HISTORY: SBO. increased pain TECHNIQUE: 1 view of the abdomen was obtained. Comparison: None available at the time of this dictation. FINDINGS: Surgical jose d are seen in the left lower quadrant. The osseous structures are grossly unremarkable . Multiple gas-distended loops of small bowel are seen measuring up to 43 mm, decreased from prior ex am where it measured up to 56 mm. Small stool burden is seen. Calcifications are seen in the pelvis. IMPRESSION: Interval slight decrease in prominence of multiple dilated loops of small bowel. Findings are compati ble with improving partial small bowel obstruction. ACT 112: Negative or not required by law. Electronically signed by: Joss Saldivar M.D. 09/05/2021 11:50 AM
--- NOTE | 2021-09-05 14:49 | Hospitalist Progress Note ---
Date of Service September 05, 2021 Assessment & Plan (1) Small bowel obstruction: Plan: Surekha is a 86-year-old female recently discharged after a open incisional hernia repair with mesh 08/30/2021, and a history of anxiety, gallstones, GERD, hyperlipidemia, hypertension who presents with worsening nausea acutely worsened in the last day with recurrent vomiting since [address] scan indicative of small bowel obstruction. initial CTA/P: Small bowel obstruction, fluid collection suspicious for seroma had been n.p.o. status for bowel rest with NGT LIS General surgery consulted-- appreciate comanagement despite development of flatus, patient with persistent pain leading to CT of the A/P done 09/04 showing increased dilated loops of bowel with transition point near the abdominal wall hernia repair site likely secondary to adhesions Given follow-up CT findings, general surgery believed surgical reexploration warranted-- is now s/p Ex Lap with explantation of abdominal mesh and release of SBO (done 09/02 Dr. Penny) - Patient order clear liquids yesterday and today (by general surgery). NGT since removed (by general surgery) - patient now with increased abd discomfort/distention but passing flatus - will go back to NPO status for now for bowel rest (to avoid worsening of the pain/discomfort and need for reinsertion of NGT). obtain KUB - ENCOURAGED AMBUATION (which patient doesn't seem motivated to do but is willing and agreeable) to return bowel function to normal - did update and d/w general surgery - continue to follow clinically (2) Leukocytosis: Plan: WBC count 12.42 upon presentation likely reactive from vomiting. Has since normalized (3) Hyperlipidemia: Plan: Resume simvastatin when able to take p.o. meds (4) GERD (gastroesophageal reflux disease): Plan: Resume PPI when able to take p.o. IV famotidine while n.p.o. (5) Obstructive apnea: Plan: noctural O2 for now when needed as unable to utilize CPAP upfront given NGT and now patient reports intolerant to mask (at home she uses a nasal attachment) (6) Incisional hernia, incarcerated: Plan: Post surgical repair (08/30/21), surgery on board. Dressing C/D/I (7) Hypertension: Plan: Telmisartan held while n.p.o. Hydralazine IV every 6 hours as needed, resume p.o. meds when able Plan: plan of care to be d/w Dr. Sanders-- Further orders as warranted. case D/W Radha Vera PA-C (General Surgery) Admission and Anticipated Discharge Date Admission Date: September 01, 2021 Subjective Patient seen on daily rounds today. NGT since removed by general surgery. Has since had clear liquids and now c/o abd "distention", "feeling bloated with increased gas", and "pressure" in the abdomen. Denies Nausea or vomiting. Mild flatus at this time. Denies F/C. HAs been requiring supplemental O2 while in bed. Denies SOB, cough or respiratory issues. Does have ANASTASIA and hasn't been using CPAP given NGT in place. Reports that she does not utilize a facemask with her CPAP but uses a nasal attachment. Is c/o fatigue. Review of Systems Review of Systems: All systems reviewed and are unremarkable except as noted in HPI and below Denies fevers, chills, headache, nasal congestion, sore throat, cough, chest pain, shortness of breath, palpitations, orthopnea, PND, diarrhea, constipation, dysuria, hematuria, frequency, back pain, joint pain or swelling, easy bruising or bleeding, skin lesions or rashes. Physical Exam Physical Exam: General: Sitting upright in her hospital bed. Appears uncomfortable given the NGT in place but does not appear ill or toxic HEENT: Head is AT/NC. Buccal mucosa is moist and pink Neck: No JVD. Negative hepatojugular reflex Cardiac: RRR without M/G/R Lungs: CTA without W/R/R Abdomen: Does have hyperactive BS in the RUQ/LUQ. Abdomen mildly distended. Exquisitely tendern in the LUQ/LLQ Extremities: No peripheral clubbing cyanosis or edema Neuro: A&O X4. Cranial nerves II through XII are grossly intact. No focal neuro deficits Skin: No obvious skin lesions or rashes Psych: Appropriate affect. Pleasant and cooperative Results & Data Results & Data ([facility]) Vital Signs (Past 12 Hours) Vital Signs Temp Pulse Resp BP BP Pulse Ox 09/05/21 14:35 36.6 C 55 L 16 129/76 93 03/16/22 11:34 94 09/05/21 11:15 37.1 C 64 20 111/70 88 L 09/05/21 08:00 95 09/05/21 07:30 36.6 C 62 18 140/57 L 95 Laboratory Results 09/05/21 08:04 09/05/21 08:48 PG Care Time/CCT Total # of Minutes Spent Total Time Spent with Patient: Total time spent is greater than 50% in coordination of care (as documented) at patient's floor/unit and/or counseling patient: Coding Level of Care Code 74105 Subseq Hosp Care Lvl 2 Diagnoses Small bowel obstruction K56.609 Leukocytosis D72.829 Hyperlipidemia E78.5 GERD (gastroesophageal reflux disease) K21.9 Obstructive apnea G47.33 Incisional hernia, incarcerated K43.0 Hypertension I10
[2021-09-05] MEDS ORDERED: ONDANSETRON INJ 2 MG/ML 2 ML VIAL IV ONE (18:31)
[2021-09-05] MEDS: FLUTICASONE PROPIONATE NA SPR 16 GM BTL SCH (21:31)
[2021-09-06] MEDS: HEPARIN SOD 5,000 UNIT/0.5 ML VIAL SQ SCH ×3 (05:22→21:11)
[2021-09-06 06:55] LABS: Basophils # (auto) 0.03 K/uL (0-0.2); Basophils % (auto) 0.3 %; Eosinophils % (auto) 2.2 %; Hematocrit (blood only) 38.4 % (37-47); Immature Granulocytes # (auto) 0.08 K/uL (0.00-0.02); Immature Granulocytes % (auto) 0.9 %; Lymphocytes # (auto) 1.47 K/uL (1.2-3.4); Lymphocytes % (auto) 15.9 %; Mean Corpuscular Hemoglobin 30.1 pg (25-34); Mean Corpuscular Hgb Conc 33.9 g/dL (32-36); Mean Corpuscular Volume 88.9 fL (80-100); Mean Platelet Volume 9.4 fL (7.4-10.4); Monocytes # (auto) 0.92 K/uL (0.11-0.59); Monocytes % (auto) 9.9 %; Neutrophils # (auto) 6.55 K/uL (1.4-6.5); Neutrophils % (auto) 70.8 %; Platelet Count 278 K/uL (130-400); RDW Coefficient of Variation 12.2 % (11.5-14.5); RDW Standard Deviation 39.5 fL (36.4-46.3); Red Blood Count 4.32 M/uL (4.2-5.4); White Blood Count 9.25 K/uL (4.8-10.8)
[2021-09-06 07:31] LABS: Anion Gap 8 (3-11); BUN Creatinine Ratio 33.3 (10-20); Blood Urea Nitrogen 19 mg/dl (6-23); Calcium 7.7 mg/dl (8.5-10.1); Carbon Dioxide 27 mmol/L (21-32); Chloride 104 mmol/L (98-107); Creatinine Clr Calc Pharmacy 85.9 ml/min; Est GFR (African American) 98.7 ml/min; Est GFR (Non-African American) 85.1 ml/min; Glucose 91 mg/dl (70-99(Fasting)); Sodium 139 mmol/L (136-145)
[2021-09-06] MEDS: FAMOTIDINE 20 MG in SYRINGE 3 ML IV SCH ×2 (08:35→21:09)
[2021-09-06] MEDS: FLUTICASONE PROPIONATE NA SPR 16 GM BTL SCH ×2 (08:35→21:09)
[2021-09-06] MEDS ORDERED: bisacodyL 10 MG SUPP PR STA (10:28)
--- NOTE | 2021-09-06 10:32 | Surgery Progress Note ---
Date of Service September 06, 2021 Assessment & Plan (1) Small bowel obstruction: Plan: POD [address] Penny can try clears again will give suppository labs stable Admission and Anticipated Discharge Date Admission Date: September 01, 2021 Subjective some flatus, nausea improved, ambulating Physical Exam Gastrointestinal (Abdomen): Inspection/Auscultation: abdomen not distended Percussion/Palpation: abdomen soft Results & Data ([facility]) Vital Signs (Past 12 Hours) Vital Signs Temp Pulse Pulse Resp BP BP Pulse Ox 09/06/21 07:41 36.7 C 60 18 142/74 H 93 09/05/21 22:40 37.0 C 59 L 18 146/79 H 94 PG Care Time/CCT Total # of Minutes Spent Total Time Spent with Patient: Total time spent is greater than 50% in coordination of care (as documented) at patient's floor/unit and/or counseling patient: Coding Level of Care Code None Diagnoses Small bowel obstruction K56.609
[2021-09-06] MEDS: LACTATED RINGER'S 1,000 ML IV SCH (10:57)
[2021-09-06] MEDS ORDERED: bisacodyL 10 MG SUPP PR ONE (13:41)
--- NOTE | 2021-09-06 16:18 | Hospitalist Progress Note ---
Date of Service September 06, 2021 Assessment & Plan (1) Small bowel obstruction: Plan: Surekha is a 86-year-old female recently discharged after a open incisional hernia repair with mesh 08/30/2021, and a history of anxiety, gallstones, GERD, hyperlipidemia, hypertension who presents with worsening nausea acutely worsened in the last day with recurrent vomiting since [address] scan indicative of small bowel obstruction. - initial CTA/P: Small bowel obstruction, fluid collection suspicious for seroma - had been n.p.o. status for bowel rest with NGT LIS - General surgery consulted-- appreciate comanagement - despite development of flatus, patient with persistent pain leading to CT of the A/P done 09/04 showing increased dilated loops of bowel with transition point near the abdominal wall hernia repair site likely secondary to adhesions - Given follow-up CT findings, general surgery believed surgical reexploration warranted-- is now s/p Ex Lap with explantation of abdominal mesh and release of SBO (done 09/02 Dr. Penny) - Patient order clear liquids 09/04 (by general surgery). NGT since removed (by general surgery) - following clear liquids--> patient now increased abd discomfort/distention but passing flatus- back to NPO status - ambulation encouraged - 09/06: no abd pain, N/V and passing flatus. will re-institute clear liquids. Encourage continued ambulation (2) Leukocytosis: Plan: WBC count 12.42 upon presentation likely reactive from vomiting. Has since normalized (3) Hyperlipidemia: Plan: Resume simvastatin once oral intake tolerated (4) GERD (gastroesophageal reflux disease): Plan: Resume PPI when able to take p.o. IV famotidine while n.p.o. (5) Obstructive apnea: Plan: noctural O2 for now when needed as unable to utilize CPAP upfront given NGT and now patient reports intolerant to mask (at home she uses a nasal attachment) (6) Incisional hernia, incarcerated: Plan: Post surgical repair (08/30/21), surgery on board. Dressing C/D/I (7) Hypertension: Plan: Telmisartan will be resumed Plan: plan of care to be d/w Dr. Sanders-- Further orders as warranted. Admission and Anticipated Discharge Date Admission Date: September 01, 2021 Subjective Patient seen on daily rounds today. Denies any abdominal discomfort, nausea or vomiting. Is passing flatus. Remains frustrated that she is in the hospital. Has been cooperative with ambulation. Denies fevers, chills, chest pain, shortness of breath, abdominal pain, nausea or vomiting. Nursing voices no complaints or concerns. Review of Systems Review of Systems: All systems reviewed and are unremarkable except as noted in HPI and below Denies fevers, chills, headache, nasal congestion, sore throat, cough, chest pain, shortness of breath, palpitations, orthopnea, PND, abdominal pain, nausea, vomiting, diarrhea, constipation, dysuria, hematuria, frequency, back pain, coby int pain or swelling, easy bruising or bleeding, skin lesions or rashes. Physical Exam Physical Exam: General: Resting comfortably in her hospital bed. NAD. HEENT: Head is AT/NC. Buccal mucosa is moist and pink Neck: No JVD. Negative hepatojugular reflex Cardiac: RRR with evidence 1/6 KYRA Lungs: CTA without W/R/R Abdomen:surgical dressing dry and intact. Hypoactive BS x 4. Abd not distended. mild RUQ tenderness but significant improvement Extremities: No peripheral clubbing cyanosis or edema Neuro: A&O X4. Cranial nerves II through XII are grossly intact. No focal neuro deficits Skin: No obvious skin lesions or rashes Psych: Appropriate affect. Pleasant and cooperative Results & Data Results & Data ([facility]) Vital Signs (Past 12 Hours) Vital Signs Temp Pulse Resp BP Pulse Ox 09/06/21 07:41 36.7 C 60 18 142/74 H 93 Laboratory Results 09/06/21 05:54 09/06/21 08:04 PG Care Time/CCT Total # of Minutes Spent Total Time Spent with Patient: Total time spent is greater than 50% in coordination of care (as documented) at patient's floor/unit and/or counseling patient: Coding Level of Care Code 52108 Subseq Hosp Care Lvl 2 Diagnoses Small bowel obstruction K56.609 Leukocytosis D72.829 Hyperlipidemia E78.5 GERD (gastroesophageal reflux disease) K21.9 Obstructive apnea G47.33 Incisional hernia, incarcerated K43.0 Hypertension I10
[2021-09-07] MEDS: HEPARIN SOD 5,000 UNIT/0.5 ML VIAL SQ SCH (05:59)
--- NOTE | 2021-09-07 08:27 | Surgery Progress Note ---
Date of Service September 07, 2021 Assessment & Plan (1) Small bowel obstruction: Plan: POD#5 overall the patient is doing very well from surgery status post release small bowel obstruction repair from abdominal wall hernia with compartment separation and Vicryl mesh placement We will advance her to a regular diet low fiber She may shower Regarding her activity I asked her she should not lift anything heavier than 10 pounds for 1 week We will see how she does today but feel that she can probably be discharged tomorrow back to [facility] All question answered POD [address] Penny can try clears again will give suppository labs stable Admission and Anticipated Discharge Date Admission Date: September 01, 2021 Subjective Doing very well since yesterday has had multiple bowel movements no abdominal discomfort would like to have something more that eat the broth to salty for her Physical Exam Physical Exam: Alert coherent laying comfortable in bed in no issues The abdomen is soft prominent as it is normally for her incision is dry jose d intact there is no redness The Jesu drain site inferior lateral to the incision on the right is free of any seepage Results & Data ([facility]) Vital Signs (Past 12 Hours) Vital Signs Temp Pulse Pulse Resp BP Pulse Ox 09/07/21 07:53 36.5 C 57 L 18 121/57 L 95 09/06/21 22:54 36.7 C 57 L 18 137/74 96 PG Care Time/CCT Total # of Minutes Spent Total Time Spent with Patient: Total time spent is greater than 50% in coordination of care (as documented) at patient's floor/unit and/or counseling patient: Coding Level of Care Code None Diagnoses Small bowel obstruction K56.609
[2021-09-07] MEDS ORDERED: ACETAMINOPHEN 325 MG TAB PO PRN (08:28)
[2021-09-07] MEDS: FLUTICASONE PROPIONATE NA SPR 16 GM BTL SCH (09:19)
--- NOTE | 2021-09-07 12:35 | Discharge Summary ---
Date of Service September 07, 2021 Admission HPI Per Admitting Provider Had surgery 2 days ago Last night just felt 'off and a little sick.' Appetite has been poor since discharge Last bowel movement was prior to her recent surgery Last ~1am suddenly felt much more nauseous and ill with pain across her lower abdomen not at her incisional site 'more like my stomach and with cramps.' Has thrown up nearly continuously since 1am and still feels very nauseous. At the beginning was yellowish and is not sure since began in the ambulance on her way here Has had some pressure in her lower chest, no chest pain. No shortness of breath. No fevers or chills. Has been cold, but no chills. Hospitalized under medical service for SBO. Principal Diagnosis SBO d/t complication from recent incisional hernia repair Discharge Exam GENERAL: 86 yo well-developed, well-nourished elderly [place]. NAD. LUNGS: Clear to auscultation bilaterally. No accessory muscle use. No W/R/R. CARDIOVASCULAR: Regular rate and rhythm. No M/G/R. No JVD. ABDOMEN: Soft, non-tender and non-distended. BS normal x 4 quad. EXTREMITIES: No edema. Non-tender. Peripheral pulses +2/4. NEUROLOGIC: A&O x3. Nonfocal. PSYCHIATRIC: Cooperative. Appropriate mood and affect. SKIN: Warm, dry, intact. No rashes or lesions. Discharge Data Allergies Allergy/AdvReac Type Severity Reaction Status Date / Time nitrofurantoin AdvReac Mild Nausea/Vomi Unverified 09/01/21 07:52 [From Macrodantin] ting Sulfa (Sulfonamide AdvReac Unknown NAUSEA AND Verified 09/01/21 07:52 Antibiotics) VOMITING Consultations 09/01/21 06:58 ED Decision to Admit Stat 09/01/21 09:57 Consult General Surgery Routine Procedures Performed Operation Date: 09/02/21 13:00 Actual Procedures p Exploratory Laparotomy, Explant Previous Abdominal Mesh, Abdominal Wall Closure with Compartment Seperation and Vicryl Mesh(Not Applicable) - Vikram Penny MD, FACS Ordered Studies Abdomen/Pelvis CT 09/01/21 04:[address] WITH IV CONTRAST CT DOSE: 1452.10 mGy.cm HISTORY: Generalized abdominal pain. Postop. Vomiting. Status post hernia repair. TECHNIQUE: Multiaxial CT images of the abdomen and pelvis were performed following the use of intravenous contrast. A dose lowering technique was utilized adhering to the principles of ALARA. COMPARISON STUDY: Abdomen and pelvis CT 04/14/2019. FINDINGS: Bibasilar subsegmental atelectasis is noted. No pneumoperitoneum. No pneumatosis. No fractures within the visualized osseous structures. Hepatic steatosis. Prior cholecystectomy. The pancreas, spleen, adrenal glands, and kidneys are unremarkable. No hydronephrosis. No retroperitoneal lymphadenopathy. 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 The bladder is unremarkable. Calcified uterine fibroids are again noted. No pelvic free fluid. Colonic diverticulosis. No evidence for acute diverticulitis. Moderate stool within the proximal colon. Normal appendix. Multiple mildly dilated gas and fluid-filled loops of small bowel to the level t he mid abdomen where there is focally decompressed loops abutting the anterior abdominal wall near the site of the supraumbilical hernia repair. This is consistent with the transition point for a small bowel obstruction. The transition point is best seen on image 277. Subcutaneous gas and fluid at the supraumbilical hernia site the fluid collection measuring 4.7 cm. This favors a postoperative seroma. No definite residual supra umbilical hernia identified at this time. A few punctate foci of extraluminal gas adjacent to the anterior abdominal wall best seen on image 276. This could be due to the recent postoperative change. IMPRESSION: 1. Dilated gas and fluid-filled loops of proximal to mid small bowel with a transition point abutting the anterior abdominal wall near the site of the supraumbilical hernia repair. This is consistent with a small bowel obstruction. No definite evidence for recurrent/residual abdominal hernia. Therefore, this could be due to an adhesion. Surgical consultation recommended. 2. Gas and fluid collection within the anterior abdominal wall at the hernia incision site. This favors recent postoperative change. 3. Additional findings as described above. ACT 112: Negative or not required by law. Electronically signed by: Elio Marroquin M.D. 09/01/2021 7:27 AM KUB X-Ray 09/01/21 11:01 KUB HISTORY: Small bowel obstruction. Evaluate NG tube placement. COMPARISON: Abdomen and pelvis CT 09/01/2021. FINDINGS: Nasogastric tube terminates in the proximal stomach with the fenestrated line at the gastroesophageal junction. Therefore, this should be advanced by approximately 5 cm. Poststernotomy. Dilated gas-filled loops of small bowel are again noted with the patient's known small bowel obstruction. Calcified uterine fibroids are partially visualized. No renal calculi. No ureteral calculi. No pneumoperitoneum or pneumatosis. IMPRESSION: 1. The nasogastric tube terminates in the proximal stomach. This should be advanced by approximately 5 cm. 2. Redemonstration of the patient's small bowel obstruction. ACT 112: Negative or not required by law. Electronically signed by: Elio Marroquin M.D. 09/01/2021 11:57 AM KUB X-Ray 09/02/21 08:01 KUB HISTORY: Acute abdominal pain with reported small bowel obstruction eval sbo COMPARISON: KUB and CT abdomen and pelvis studies 09/01/2021 FINDINGS: Distal tip enteric tube projects over the gastric body. Unchanged small bowel obstruction. Calcified uterine fibroids. Contrast noted within the urinary bladder lumen. Moderate fecal retention of the right hemicolon. Cholecystectomy. No renal calculi. No ureteral calculi. No pneumoperitoneum or pneumatosis. Lumbar levoscoliosis. No fracture. IMPRESSION: 1. Distal tip of enteric tube projects over the stomach. 2. Persistent small bowel obstruction. ACT 112: Negative or not required by law. The above report was generated using voice recognition software. It may contain grammatical, syntax or spelling errors. Electronically signed by: Andrea Redd M.D. 09/02/2021 8:58 AM Abdomen/Pelvis CT 09/02/21 08:[address] WITHOUT CONTRAST CT DOSE: 1370.95 mGy.cm HISTORY: Acute abdominal pain with abdominal distention status post hernia repair s/p incisional hernia repair, eval SBO TECHNIQUE: Multiaxial CT images of the abdomen and pelvis were performed without contrast. A dose lowering technique was utilized adhering to the principles of ALARA. COMPARISON STUDY: CT abdomen and pelvis 09/01/2021 FINDINGS: Trace left and small right pleural effusions. Mild bibasilar consolidation. The unenhanced spleen, moderately atrophic pancreas, and adrenal glands are unremarkable. Cholecystectomy. Hepatic steatosis. Mild nonspecific bilateral perinephric stranding. No hydronephrosis. Contrast is noted within the urinary bladder. Numerous calcified uterine fibroids. Atherosclerosis of the aorta. No adenopathy. Enteric tube terminates within the gastric body. Mild colonic diverticulosis. Small volume of abdominal pelvic ascites. Moderate fecal retention of the right hemicolon. Noninflamed appendix. There are numerous air and fluid-filled dilated loops of small bowel within the abdomen measuring up to 3.9 cm transversely, previously 3.6 cm. Transition a decompressed loops again noted along the anterior abdominal wall near the supraumbilical hernia repair. Gas and fluid within the anterior abdominal wall at the hernia incision site redemonstrated with fluid measuring up to 5.7 cm transversely. Mild lumbar levoscoliosis. Degenerative changes of the spine, pelvis and hips. IMPRESSION: 1. Persistent small bowel obstruction with transition point within the anterior mid abdomen near the abdominal wall hernia repair site, likely secondary to underlying adhesions. The degree of small bowel distention is similar to slightly progressed. 2. Small volume of abdominopelvic ascites is new from prior. Small right and trace left pleural effusions. 3. Enteric tube terminates within the stomach. 4. Mild bibasilar densities suggest atelectasis. 5. Gas and fluid within the anterior abdominal wall at the hernia incision site is likely on a postoperative basis. 6. Additional findings as above. ACT 112: Negative or not required by law. The above report was generated using voice recognition software. It may contain grammatical, syntax or spelling errors. Electronically signed by: Andrea Redd M.D. 09/02/2021 10:03 AM KUB X-Ray 09/05/21 10:38 XR KUB/Abdomen 1 view CLINICAL HISTORY: SBO. increased pain TECHNIQUE: 1 view of the abdomen was obtained. Comparison: None available at the time of this dictation. FINDINGS: Surgical jose d are seen in the left lower quadrant. The osseous structures are grossly unremarkable. Multiple gas-distended loops of small bowel are seen measuring up to 43 mm, decreased from prior exam where it measured up to 56 mm. Small stool burden is seen. Calcifications are seen in the pelvis. IMPRESSION: Interval slight decrease in prominence of multiple dilated loops of small bowel. Findings are compatible with improving partial small bowel obstruction. ACT 112: Negative or not required by law. Electronically signed by: Joss Saldivar M.D. 09/05/2021 11:50 AM Hospital Course (1) Small bowel obstruction: Surekha is a 86-year-old female recently discharged after a open incision al hernia repair with mesh 08/30/2021, and a history of anxiety, gallstones, GERD, hyperlipidemia, hypertension who presents with worsening nausea acutely worsened in the last day with recurrent vomiting since [address] scan indicative of small bowel obstruction. - initial CTA/P: Small bowel obstruction, fluid collection suspicious for seroma - had been n.p.o. status for bowel rest with NGT LIS - General surgery consulted-- appreciate comanagement - despite development of flatus, patient with persistent pain leading to CT of the A/P done 09/04 showing increased dilated loops of bowel with transition point near the abdominal wall hernia repair site likely secondary to adhesions - Given follow-up CT findings, general surgery believed surgical reexploration warranted-- is now s/p Ex Lap with explantation of abdominal mesh and release of SBO (done 09/02 Dr. Penny) - Patient order clear liquids 09/04 (by general surgery). NGT since removed (by general surgery) - following clear liquids--> patient now increased abd discomfort/distention but passing flatus- back to NPO status - ambulation encouraged - 09/06: no abd pain, N/V and passing flatus. clear liquids resumed which she was tolerating well - 09/07: pt's diet advanced this AM by general surgery to low fiber, she tolerated well, no abd pain or n/v, has had total of 3 formed BMs (2) Leukocytosis: WBC count 12.42 upon presentation likely reactive from vomiting. Has since normalized (3) Hyperlipidemia: Resume simvastatin once oral intake tolerated (4) GERD (gastroesophageal reflux disease): Resume PPI when able to take p.o. IV famotidine while n.p.o. (5) Obstructive apnea: - nocturnal O2 for now when needed as unable to utilize CPAP upfront given NGT and now patient reports intolerant to mask (at home she uses a nasal attachment) - resume cpap use upon d/c (6) Incisional hernia, incarcerated: Post surgical repair (08/30/21), surgery on board. Dressing C/D/I (7) Hypertension: Telmisartan will be resumed At this time, pt is medically and hemodynamically stable for discharge. She is tolerating oral intake, has no abd pain or n/v. She is passing flatus and has had formed BMs. At this time, will plan to discharge her back to SNF at [facility] who can accommodate her return today. She will be provided with post operative discharge instructions and follow up by general surgery. In addition to surgery f/u, advise f/u with her primary care provider at SNF within 1 week or sooner. Above plan of care has been d/w Dr. Oconnell who has also seen this patient prior to discharge and is in agreement with the aforementioned. Total Time Total Time Spent Total Time Spent (In Minutes): >30 minutes Discharge Plan Discharge Items Patient Disposition: Transfer Longterm Fac Reason For Visit: SBO Discharge Diagnosis: Small bowel obstruction Activity: As commented below Activity Comment: As tolerated Lifting: No more than 5 pounds Non-emergency contact: Primary Care Provider and Surgeon Call non-emergency contact if: you have any medication questions, your symptoms worsen and your pain is not controlled Follow-up/Referrals: Vikram Penny MD, FACS [Surgeon] - (as directed) Matias Alforddebbie [Primary Care Provider] - Diet: Heart Healthy and Low Fiber Addtl Attending Provider Instructions: You were hospitalized with a small bowel obstruction which occurred likely as a complication from your hernia repair. As a result, you underwent surgery by Dr. Penny on September 02 where you were found to have a loop of your small bowel that had adhered to the surgery mesh from your hernia repair causing a blockage. At this time, your able to continue with a diet (low fiber). We would recommend you follow all post operative discharge instructions as provided by general surgery. This includes local wound care, activity instructions, and follow up. All medications should be taken as outlined on your medication reconciliation. There have been no changes made to your medicines during your hospitalization. We recommend that you follow up with your primary care provider at [facility] upon your return (ideally within 1 week or sooner). Pending Studies at Discharge: No Stand-Alone Forms: My [employer] Skilled Items Patient informed of condition?: Yes DNR: Yes Discharge Level of Care: Skilled Communicable Disease: No Discharge Prognosis: Stable Lines: None Urinary Catheter: No Medications and DC Order Prescriptions: Continued (DME) CPAP Machine Misc See Rx Instructions .MEDSUPPLY Qty: 1 RF: 0 clobetasol 0.05 % ointment 1 applic TOP 2XWK Qty: 45 RF: 2 (DME) CPAP Machine Misc See Rx Instructions .MEDSUPPLY Qty: 1 RF: 0 lorazepam 1 mg tablet 1 mg PO DAILY PRN (Reason: Anxiety) Qty: 10 RF: 0 simvastatin 40 mg tablet 40 mg PO QPM RF: 0 pantoprazole 40 mg tablet,delayed release (DR/EC) 40 mg PO QPM RF: 0 telmisartan 20 mg tablet 20 mg PO QPM RF: 0 triamcinolone acetonide 0.1 % cream 1 applic topical DAILY PRN (Reason: SKIN ISSUES) RF: 0 cyanocobalamin (vitamin B-12) [Vitamin B-12] 1,000 mcg Tablet 1,000 mcg PO QPM RF: 0 ketoconazole 2 % Cream 1 applic TOPICAL DAILY PRN (Reason: SKIN RASHES) RF: 0 cholecalciferol (vitamin D3) [Vitamin D3] 1,000 unit Capsule 1,000 unit PO QPM RF: 0 coQ10 (ubiquinol) 200 mg Capsule 200 mg PO QPM RF: 0 pseudoephedrine HCl 30 mg Tablet 30 mg PO Q6H PRN (Reason: Nasal Congestion) RF: 0 zolpidem 5 mg Tablet 5 mg PO HS RF: 0 aspirin [Aspirin Low Dose] 81 mg tablet,delayed release (DR/EC) 81 mg PO 3XWK RF: 0 docusate sodium 100 mg Capsule 100 mg PO TID Qty: 0 RF: 0 guaifenesin [Mucinex] 600 mg Tablet Extended Release 12hr 400 mg PO HS RF: 0 hydrocodone-acetaminophen 5-325 mg tablet 1 - 2 tab PO Q4H PRN (Reason: pain, for initial therapy, max 6 tabs per day ) RF: 0 Discharge Orders: Discharge Order (Routine); Ordered 09/07/21 Ordered By: Meghan Mejia Admission Data Admit Date/Time: 09/01/21 07:27 Attending Provider: Odin Oconnell Admit Provider: Odin Oconnell Primary Care Provider: Sahil Alford Other Providers: Oidn Oconnell ; Vikram Penny Other Interventions: Discharge Summary Assessment (RN) Last Done: 09/07/21 12:25 Supervising Physician Co-Signing Physician Notes Case discussed with KARLA Mejia. Patient seen at bedside prior to discharge. She reports she feels well and ready to go home. Has had multiple bowel movem ents today without pain. However small bowel obstruction is clinically resolved, continue low fiber diet. Her abdomen is soft and nontender on exam, breathing is unlabored, heart rate is regular intermittently bradycardic. No additional questions at time of bedside visit, agree with management as above and discharge Coding Level of Care Code D/C DAY MANAGEMENT >30 MINS Diagnoses Small bowel obstruction K56.609 Leukocytosis D72.829 Hyperlipidemia E78.5 GERD (gastroesophageal reflux disease) K21.9 Obstructive apnea G47.33 Incisional hernia, incarcerated K43.0 Hypertension I10
--- NOTE | 2021-09-12 05:03 | Coding Query ---
CODING QUERY To promote full compliance with coding requirements relating to patient care, provider participation is requested in all cases of working foreman uncertainty. Please assist us with the question(s) below: Coding Question(s): Patient admitted 2 days after incisional hernia repair with intestinal obstruction. During this current IP stay mesh explanted and reimplanted. and a compartment separation procedure was done. Discharge Summary states SBO d/t complicatoin from recent incisional hernia repair. Please document the complication , if known or suspected. Thank you. Mathew Feliciano [facility] Physician's Response(s): The complication was the small bowel obstruction, abbreviated SBO. Principal Diagnosis: "that condition established after study, to be chiefly responsible for occasioning the admission of the patient to the hospital for care." Co-Existing Principal Diagnosis: "when two or more diagnoses equally meet the criteria for principal diagnosis as determined by the circumstances of admission, diagnostic work up, and/or therapy provided, and the Alphabetic Index, Tabular List, or another coding guideline does not provide sequencing direction, any one of the diagnoses may be sequenced first." "When the physician has documented what appears to be a current diagnosis in the body of the record, but has not included the diagnosis in the final diagnostic statement, the physician should be asked whether the diagnosis should be added." (Source Coding Clinic 2 QTR90. p3-4) MINDY
== END 2021-09-07 13:49 | DRG 337 ==
LOC: ED 04:09 → SUATTDRO 07:27 → 3N 07:27